=== PATIENT | female | born 1955 | race Caucasian/White ===

== ENCOUNTER 2021-04-21 08:46 | Outpatient (REF) | payer OTHER, SELFPAY ==
[2021-04-21 09:30] LABS: MANUAL DIFF FLAG NO
[2021-04-21 09:40] LABS: Basophils Percent Auto 0.5 % (0-2); Eosinophils Absolute Auto 0.2 X10*3/uL (0.0-0.4); Eosinophils Percent Auto 5.3 % (0-4); Hematocrit 37.7 % (37-47); Imm Gran Abs Auto 0.02 X10*3/uL (0.00-0.03); Imm Gran Pct Auto 0.5 % (0.0-0.4); Lymphocytes Absolute Auto 1.3 X10*3/uL (1.2-4.9); Lymphocytes Percent Auto 30.6 % (20-40); Mean Corpuscular HGB Conc 31.8 g/dl (31.0-35.0); Mean Corpuscular Hemoglobin 29.3 pg (27.0-33.0); Mean Platelet Volume 11.4 fL (9.4-12.3); Monocytes Absolute Auto 0.4 X10*3/uL (0.1-1.2); Monocytes Percent Auto 8.9 % (2-11); Neutrophils Absolute Auto 2.3 X10*3/uL (2.0-8.3); Neutrophils Percent Auto 54.2 % (45-73); Red Cell Distribution Width 13.2 % (11.0-16.0); White Blood Count 4.2 X10*3/uL (4.8-10.8)
[2021-04-21 09:42] LABS: Platelet Count 90 X10*3/uL (160-400)
[2021-04-21 10:10] LABS: Alanine Aminotransferase 55 U/L (0-31); Albumin Level 4.1 g/dL (3.5-5.0); Alkaline Phosphatase 95 U/L (39-117); Anion Gap 11 (12-20); Aspartate Amino Transferase 47 U/L (5-31); Bilirubin Total 0.5 mg/dL (0.0-1.0); Blood Urea Nitrogen 44 mg/dL (9-16); Calcium 8.9 mg/dL (8.4-10.2); Carbon Dioxide 23 mmol/L (22-29); Chloride 113 mmol/L (96-108); Cholesterol 178 mg/dL; Estimated Glomerular Filt Rate 41; Glucose Fasting 199 mg/dL (60-99); HDL Cholesterol 41 mg/dL; LDL Cholesterol Calculated 96 mg/dl; Potassium 5.1 mmol/L (3.3-5.1); Sodium 142 mmol/L (135-145); Total Protein 6.7 g/dL (6.5-8.0); Triglycerides 208 mg/dL
[2021-04-21 10:34] LABS: Thyroid Stimulating Hormone 1.69 uIU/mL (0.32-4.0)
[2021-04-21 11:19] LABS: Creatinine Urine 67.56 mg/dL; Microalbum/Creatinine Ratio Ur 17.7 ug/mg cr
== END 2021-04-21 08:47 | disposition home or self-care (01) ==
LOC: HO.LAB 08:46
PROVIDERS: PCP Internal Medicine; Visit Provider Internal Medicine
DX: Z00.00 Encounter for general adult medical examination without abnormal findings (principal); E11.9 Type 2 diabetes mellitus without complications; E03.9 Hypothyroidism, unspecified
CPT/HCPCS: 36415; 80053; 80061; 82043; 84443; 85025

== ENCOUNTER 2022-01-19 13:43 | Outpatient (REF) | payer OTHER, SELFPAY ==
--- NOTE | ~2022-01-19 | XR_ITS ---
EXAMINATION: XR SINUSES CLINICAL INFORMATION: Chronic sinusitis. COMPARISON: None TECHNIQUE: 5 views of the paranasal sinuses. FINDINGS: No significant mucosal thickening or air-fluid levels are detected within the paranasal sinuses. No bony destruction is evident. Mastoid air cells appear aerated. There appears to be some mild mucosal thickening within the left maxillary sinus. XR/XR sinus min 3V IMPRESSION: No evidence of acute sinusitis.
== END 2022-01-19 13:44 | disposition home or self-care (01) ==
LOC: HO.XRAY 13:43
PROVIDERS: PCP Internal Medicine; Visit Provider Internal Medicine
DX: J32.9 Chronic sinusitis, unspecified (principal)
CPT/HCPCS: 70220

== ENCOUNTER 2022-04-27 08:06 | Outpatient (REF) | payer OTHER, SELFPAY ==
[2022-04-27 08:22] LABS: MANUAL DIFF FLAG NO
[2022-04-27 08:29] LABS: Basophils Percent Auto 0.5 % (0-2); Eosinophils Absolute Auto 0.3 X10*3/uL (0.0-0.4); Eosinophils Percent Auto 7.3 % (0-4); Hematocrit 36.4 % (37.0-47.0); Hemoglobin 11.9 g/dl (12.0-16.0); Imm Gran Abs Auto 0.03 X10*3/uL (0.00-0.03); Imm Gran Pct Auto 0.7 % (0.0-0.4); Lymphocytes Absolute Auto 1.3 X10*3/uL (1.2-4.9); Mean Corpuscular HGB Conc 32.7 g/dl (31.0-35.0); Mean Corpuscular Hemoglobin 29.2 pg (27.0-33.0); Mean Corpuscular Volume 89.4 fL (80.0-98.0); Mean Platelet Volume 10.8 fL (9.4-12.3); Monocytes Absolute Auto 0.4 X10*3/uL (0.1-1.2); Monocytes Percent Auto 9.2 % (2-11); Neutrophils Absolute Auto 2.1 x10*3/uL (2.0-8.3); Neutrophils Percent Auto 50.3 % (45-73); Red Blood Count 4.07 X10*6/uL (4.20-5.50); Red Cell Distribution Width 13.2 % (11.0-16.0); White Blood Count 4.1 X10*3/uL (4.8-10.8)
[2022-04-27 08:30] LABS: Platelet Count 80 X10*3/uL (160-400)
[2022-04-27 08:39] LABS: Estimated Average Glucose 157 mg/dL; Hemoglobin A1c % 7.1 %
[2022-04-27 08:50] LABS: Alanine Aminotransferase 35 U/L (0-31); Alkaline Phosphatase 90 U/L (39-117); Anion Gap 12 (12-20); Aspartate Amino Transferase 34 U/L (5-31); Bilirubin Total 0.5 mg/dL (0.0-1.0); Blood Urea Nitrogen 36 mg/dL (9-16); Calcium 8.9 mg/dL (8.4-10.2); Carbon Dioxide 20 mmol/L (22-29); Chloride 114 mmol/L (96-108); Cholesterol 157 mg/dL; Estimated Glomerular Filt Rate 42; Glucose Fasting 201 mg/dL (60-99); HDL Cholesterol 35 mg/dL; LDL Cholesterol Calculated 78 mg/dl; Potassium 5.2 mmol/L (3.3-5.1); Sodium 141 mmol/L (135-145); Total Protein 6.4 g/dL (6.5-8.0); Triglycerides 222 mg/dL
[2022-04-27 09:12] LABS: Thyroid Stimulating Hormone 1.29 uIU/mL (0.32-4.0)
[2022-04-27 09:27] LABS: Creatinine Urine 68.97 mg/dL; Microalbum/Creatinine Ratio Ur 18.8 ug/mg cr
== END 2022-04-27 08:07 | disposition home or self-care (01) ==
LOC: HO.LAB 08:06
PROVIDERS: PCP Internal Medicine; Visit Provider Internal Medicine
DX: Z13.0 Encounter for screening for diseases of the blood and blood-forming organs and certain disorders involving the immune mechanism (principal); E66.01 Morbid (severe) obesity due to excess calories; E11.69 Type 2 diabetes mellitus with other specified complication; E03.9 Hypothyroidism, unspecified; I10 Essential (primary) hypertension; E78.5 Hyperlipidemia, unspecified
CPT/HCPCS: 36415; 80053; 80061; 82043; 83036; 84443; 85025

== ENCOUNTER 2023-09-16 11:18 | Outpatient (AMB) | payer MEDICARE, SELFPAY ==
[2023-09-16 11:19] VITALS: BP 124/64; PULSE 75; O2SAT 98; BMI 27.1
--- NOTE | 2023-09-16 11:19 | A.OFFPC_ITS ---
Vital Signs 09/16/23 11:19 Height 5 ft 8 in Weight 178 lb BMI 27.1 BP 124/64 Blood Pressure Location Lt brachial Position Sitting Pulse 75 Pulse Source Pulse Oximeter Pulse Oximetry (%) 98 Oxygen Delivery Method Room Air Intake Visit Reasons: 6 m follow up Manager Field Investigations Required: No Human Resources Department Supervisor: Not Required per policy Accompanied by: Self / Same As Patient Allergies ciprofloxacin Allergy (Unknown, Verified 09/16/23 11:20) Angioedema Medication List - Last Reconciled 09/16/23 by Moris Marie MD empagliflozin 10 mg PO DAILY glipizide 10 mg PO BID lisinopril 20 mg PO DAILY metformin 1,000 mg PO BID simvastatin 40 mg PO BEDTIME sitagliptin phosphate 100 mg PO DAILY Tobacco use date assessed: 01/20/23 Fall risk assessment: No Falls in past year Last assessed Fall Risk: 09/16/23 Dental Screening Dental Screen Date: 09/16/23 Did you have a dental visit in the last 12 months?: Yes Did you have a dental problem in the last 6 months where you did not have access to dental care?: No Was dental information given to patient?: Patient has dentist HPI 6 m follow up HPI Details DM HTN and hyperlip; stable on rx PFSH Medical History Diabetes mellitus with coincident hypertension Diabetes mellitus Surgical History No pertinent past surgical history Family History Mother No problems noted. Father No problems noted. Social History Housing: House Alcohol intake: never Patient Tobacco Use Status: Never used Tobacco e-Cigarette/Vaping Use: Never Used Second Hand Smoke Exposure: No service: No Current occupational status: employed Cognitive needs: No Hearing needs: No Vision needs: Yes Questionnaire Thrive Questionnaire Date Thrive assessed: 01/20/23 PACO-7 AMB Questionnaire PACO-7 Date PACO - 7 assessed: 01/20/23 Source: Developed by Drs. Phu Buckley, Vanessa Garcia, Andres Barnhart and colleagues, with an educational britney from [employer]. Review of Systems Const Denies chills, Denies headache(s) and Denies weight loss ENT Denies headache(s) Card Denies chest pain, Denies syncope, Denies irregular heart rhythm and Denies dyspnea Resp Denies chest congestion, Denies cough and Denies dyspnea GI Denies abdominal pain, Denies change in stool character, Denies nausea and Denies vomiting Musc Denies deformity and Denies joint swelling Neuro Denies syncope and Denies headache(s) Physical exam (Primary Care) Vital Signs: Last Vital Signs Pulse 75 09/16/23 11:19 BP 124/64 09/16/23 11:19 Pulse Ox 98 09/16/23 11:19 Oxygen Delivery Method Room Air 09/16/23 11:19 BMI result Body Mass Index 27.1 Tobacco/Smoking Status: Tobacco use Status Tobacco use date assessed 01/20/23 09/16/23 11:20 Patient Tobacco Use Status Never used Tobacco 09/16/23 11:20 e-Cigarette/Vaping Use Never Used 09/16/23 11:20 Thrive Assessment: Date of Thrive Assessment Date Thrive assessed 01/20/23 09/16/23 11:20 Const General: cooperative, comfortable, no acute distress and alert Neck Neck: Yes no lymphadenopathy Thyroid: Thyroid normal Resp Effort & Inspection: normal respiratory effort Auscultation: clear to auscultation bilaterally Percussion: percussion normal Cardio Jugular venous distension: no JVD Palpation: normal PMI Rate: regular rate Rhythm: regular rhythm Heart sounds: S1 normal heart sound present and S2 normal heart sound present GI Inspection: Yes normal to inspection Palpation (GI): No hepatosplenomegaly present Skin General skin exam: no rashes or lesions noted Extrem General: Yes no clubbing, cyanosis or edema Results AMB Hemoglobin A1c AMB Hemoglobin A1c 7.0 % Last Edit by MAYKEL Garcia on 09/16/23 11:35 Results Reviewed Results Reviewed: Laboratory Last Values Hgb A1c (Clinic) 7.0 % (4.0-6.0) H 09/16/23 11:21 Assessment and Plan Assessment & Plan (1) Diabetes mellitus with coincident hypertension: Code(s): E11.9 - Type 2 diabetes mellitus without complications; I10 - Essential (primary) hypertension Plan: stable; same rx (2) Hyperlipidemia: Code(s): E78.5 - Hyperlipidemia, unspecified Plan: stable; same rx (3) Hypertension: Code(s): I10 - Essential (primary) hypertension Plan: stable; same rx Orders: Orders Lipid Panel Today E78.5 - Hyperlipidemia, unspecified Thyroid Stimulating Hormone Today E03.9 - Hypothyroidism, unspecified Complete Blood Count Auto Diff Today D64.9 - Anemia, unspecified Comprehensive [place]. Panel Fast Today N28.9 - Disorder of kidney and ureter, unspecified Microalbumin, Random (w Creat) Today E11.69 - Type 2 diabetes mellitus with other specified complication, E66.01 - Morbid (severe) obesity due to excess calories AMB Hemoglobin A1c Today E11.9 - Type 2 diabetes mellitus without complications, I10 - Essential (primary) hypertension Medications: Refilled glipizide 10 mg PO BID 180 tabs 5RF empagliflozin 10 mg PO DAILY 90 tabs 8RF Coding Level of Care Code Est Pt Level 4 (02138) Diagnoses Diabetes mellitus with coincident hypertension E11.9; I10 Hyperlipidemia E78.5 Hypertension I10
== END 2023-09-16 11:50 | disposition home or self-care (01) ==
PROVIDERS: PCP Internal Medicine; Visit Provider Internal Medicine
DX: E11.9 Type 2 diabetes mellitus without complications (principal); I10 Essential (primary) hypertension; E78.5 Hyperlipidemia, unspecified
CPT/HCPCS: 83036; 99214

== ENCOUNTER 2023-11-12 07:29 | Outpatient (REF) | payer MEDICARE, SELFPAY ==
[2023-11-12 08:15] LABS: MANUAL DIFF FLAG NO
[2023-11-12 09:19] LABS: Eosinophils Absolute Auto 0.2 X10*3/uL (0.0-0.4); Eosinophils Percent Auto 4.7 % (0-4); Hematocrit 37.1 % (37.0-47.0); Hemoglobin 12.3 g/dl (12.0-16.0); Imm Gran Abs Auto 0.03 X10*3/uL (0.00-0.03); Imm Gran Pct Auto 0.8 % (0.0-0.4); Lymphocytes Absolute Auto 1.2 X10*3/uL (1.2-4.9); Lymphocytes Percent Auto 30.5 % (20-40); Mean Corpuscular HGB Conc 33.2 g/dl (31.0-35.0); Mean Corpuscular Hemoglobin 29.4 pg (27.0-33.0); Mean Corpuscular Volume 88.8 fL (80.0-98.0); Mean Platelet Volume 11.6 fL (9.4-12.3); Monocytes Absolute Auto 0.3 X10*3/uL (0.1-1.2); Monocytes Percent Auto 6.8 % (2-11); Neutrophils Absolute Auto 2.2 x10*3/uL (2.0-8.3); Neutrophils Percent Auto 56.2 % (45-73); Red Blood Count 4.18 X10*6/uL (4.20-5.50); White Blood Count 3.8 X10*3/uL (4.8-10.8)
[2023-11-12 09:27] LABS: Platelet Count 86 X10*3/uL (160-400)
[2023-11-12 10:26] LABS: Creatinine Urine 95.28 mg/dL; Microalbum/Creatinine Ratio Ur 15.7 ug/mg cr (<30)
[2023-11-12 10:48] LABS: Alanine Aminotransferase 24 U/L (0-31); Albumin Level 3.8 g/dL (3.5-5.0); Alkaline Phosphatase 95 U/L (39-117); Anion Gap 11 (12-20); Aspartate Amino Transferase 24 U/L (5-31); Bilirubin Total 0.4 mg/dL (0.0-1.0); Blood Urea Nitrogen 33 mg/dL (9-16); Calcium 9.3 mg/dL (8.4-10.2); Carbon Dioxide 21 mmol/L (22-29); Chloride 113 mmol/L (96-108); Cholesterol 158 mg/dL (<200); Estimated Glomerular Filt Rate 40; Glucose Fasting 171 mg/dL (60-99); HDL Cholesterol 40 mg/dL (>40); LDL Cholesterol Calculated 82 mg/dL (<100); Potassium 4.4 mmol/L (3.3-5.1); Sodium 141 mmol/L (135-145); Total Protein 6.5 g/dL (6.5-8.0); Triglycerides 181 mg/dL (<150)
[2023-11-12 10:54] LABS: Thyroid Stimulating Hormone 1.56 uIU/mL (0.32-4.0)
== END 2023-11-12 07:30 | disposition home or self-care (01) ==
LOC: HO.LAB 07:29
PROVIDERS: PCP Internal Medicine; Visit Provider Internal Medicine
DX: E03.9 Hypothyroidism, unspecified (principal); E11.69 Type 2 diabetes mellitus with other specified complication; E66.01 Morbid (severe) obesity due to excess calories; N28.9 Disorder of kidney and ureter, unspecified; D64.9 Anemia, unspecified; E78.5 Hyperlipidemia, unspecified
CPT/HCPCS: 36415; 80053; 80061; 82043; 82570; 84443; 85025

== ENCOUNTER 2024-03-19 08:12 | Outpatient (AMB) | payer MEDICARE, SELFPAY ==
[2024-03-19 08:36] VITALS: BP 130/60; PULSE 75; O2SAT 98; BMI 27.7
--- NOTE | 2024-03-19 08:36 | MHC.PC.OV ---
Vital Signs 03/19/24 08:36 Height 5 ft 8 in Weight 182 lb BMI 27.7 BP 130/60 Blood Pressure Location Lt brachial Position Sitting Pulse 75 Pulse Source Pulse Oximeter Pulse Oximetry (%) 98 Oxygen Delivery Method Room Air Intake Visit Reasons: 6mth f/u Forensic Audit Expert: Not Required per policy Accompanied by: Self / Same As Patient Allergies ciprofloxacin Allergy (Unknown, Verified 03/19/24 08:37) Angioedema Medication List - Last Reconciled 03/19/24 by Moris Marie MD empagliflozin (Jardiance) 25 mg PO DAILY glipizide 10 mg PO BID lisinopril 20 mg PO DAILY metformin 1,000 mg PO BID simvastatin 40 mg PO BEDTIME sitagliptin phosphate 100 mg PO DAILY Tobacco use date assessed: 03/19/24 Fall risk assessment: No Falls in past year Last assessed Fall Risk: 03/19/24 Dental Screening Dental Screen Date: 03/19/24 Did you have a dental visit in the last 12 months?: Yes Did you have a dental problem in the last 6 months where you did not have access to dental care?: No Was dental information given to patient?: Patient has dentist HPI 6mth f/u HPI Details HTN on Rx; doing well and compliant [facility] Medical History Diabetes mellitus with coincident hypertension Diabetes mellitus Surgical History No pertinent past surgical history Family History Mother No problems noted. Father No problems noted. Social History Housing: House Alcohol intake: never Patient Tobacco Use Status: Never used Tobacco e-Cigarette/Vaping Use: Never Used Second Hand Smoke Exposure: No service: No Current occupational status: employed Cognitive needs: No Hearing needs: No Vision needs: Yes Questionnaire PHQ-9 Over the last 2 weeks, how often have you been bothered by any of the following problems? 1. Little interest or pleasure in doing things: not at all 2. Feeling down, depressed, or hopeless: not at all 3. Trouble falling or staying asleep, or sleeping too much: not at all 4. Feeling tired or having little energy: not at all 5. Poor appetite or overeating: not at all 6. Feeling bad about yourself - or that you are a failure or have let yourself or your family down: not at all 7. Trouble concentrating on things, such as reading the newspaper or watching television: not at all 8. Moving or speaking so slowly that other people could have noticed. Or the opposite - being so fidgety or restless that you have been moving around a lot more than usual: not at all 9. Thoughts that you would be better off or of hurting yourself in some way: not at all Total score: 0 Depression Screening Interpretation: Negative Depression Screening Done: Yes 55508 - PHQ-9 Billing: Yes Source: Developed by Drs. Phu Buckley, Vanessa Garcia, Andres Barnhart and colleagues, with an educational britney from [employer]. Thrive Questionnaire Date Thrive assessed: 03/19/24 I am a: Patient What is your living situation today?: I have a steady place to live Within the past 12 months, did the food you bought not last and you didn't have the money to get more?: Never true Within the past 12 months, did you worry whether your food would run out before you got money to buy more?: Never true Do you have trouble paying for medicines?: No Do you have trouble getting transportation to medical appointments?: No Do you have trouble paying your heating and electricity bill?: No Do you have trouble taking care of your child, family member or friend?: No Do you have trouble with day-to-day activities such as bathing, preparing meals, shopping, managing finances, etc.?: No Are you currently unemployed and looking for a job?: No Are you interested in more education?: No Please select the resources that you would like help with: None THRIVE Score: 0 AUDIT C Alcohol Use Questionnaire (AUDIT-C) 1. How often do you have a drink containing alcohol?: Never Total Score: 0 Score Reviewed/Action Taken: Yes PACO-7 AMB Questionnaire PACO-7 Date PACO - 7 assessed: 03/19/24 Feeling nervous, anxious, or on edge: 0 = Not at all Not being able to stop or control worryin = Not at all Worrying too much about different things: 0 = Not at all Trouble relaxin = Not at all Being so restless that it is hard to sit still: 0 = Not at all Becoming easily annoyed or irritable: 0 = Not at all Feeling afraid as if something awful might happen: 0 = Not at all Total PACO-7 score (0-4 normal; 5-9 mild; 10-14 moderate; 15-21 severe): 0 Source: Developed by Drs. Phu Buckley, Vanessa Garcia, Andres Barnhart and colleagues, with an educational britney from [employer]. Review of Systems Const Denies chills, Denies headache(s) and Denies weight loss ENT Denies headache(s) Card Denies chest pain, Denies syncope, Denies irregular heart rhythm and Denies dyspnea Resp Denies chest congestion, Denies cough and Denies dyspnea GI Denies abdominal pain, Denies change in stool character, Denies nausea and Denies vomiting Musc Denies deformity and Denies joint swelling Neuro Denies syncope and Denies headache(s) Physical exam (Primary Care) Vital Signs: Last Vital Signs Pulse 75 03/19/24 08:36 BP 130/60 03/19/24 08:36 Pulse Ox 98 03/19/24 08:36 Oxygen Delivery Method Room Air 03/19/24 08:36 BMI result Body Mass Index 27.7 Tobacco/Smoking Status: Tobacco use Status Tobacco use date assessed 03/19/24 03/19/24 08:41 Patient Tobacco Use Status Never used Tobacco 03/19/24 08:41 e-Cigarette/Vaping Use Never Used 03/19/24 08:41 PHQ-9: PHQ-9 Score PHQ-9: Total score 0 03/19/24 08:41 Depression Screening Interpretation: Negative Thrive Assessment: Date of Thrive Assessment Date Thrive assessed 03/19/24 03/19/24 08:41 Const General: cooperative, comfortable, no acute distress and alert Neck Neck: Yes no lymphadenopathy Thyroid: Thyroid normal Resp Effort & Inspection: normal respiratory effort Auscultation: clear to auscultation bilaterally Percussion: percussion normal Cardio Jugular venous distension: no JVD Palpation: normal PMI Rate: regular rate Rhythm: regular rhythm Heart sounds: S1 normal heart sound present and S2 normal heart sound present GI Inspection: Yes normal to inspection Palpation (GI): No hepatosplenomegaly present Skin General skin exam: no rashes or lesions noted Extrem General: Yes no clubbing, cyanosis or edema Assessment and Plan Assessment & Plan (1) Hypertension: Code(s): I10 - Essential (primary) hypertension Plan: stable ;and same rx Orders: Orders Complete Blood Count Auto Diff Today Z13.0 - Encounter for screening for diseases of the blood and blood-forming organs and certain disorders involving the immune mechanism Lipid Panel Today Z13.220 - Encounter for screening for lipoid disorders Comprehensive [place]. Panel Fast Today Z13.9 - Encounter for screening, unspecified Hemoglobin A1c Today R73.9 - Hyperglycemia, unspecified Coding Level of Care Code Est Pt Level 3 (32179) Diagnoses Hypertension I10
== END 2024-03-19 08:53 | disposition home or self-care (01) ==
PROVIDERS: PCP Internal Medicine; Visit Provider Internal Medicine
DX: I10 Essential (primary) hypertension (principal)
CPT/HCPCS: 99213

== ENCOUNTER 2024-09-24 08:19 | Outpatient (AMB) | payer MEDICARE, SELFPAY ==
--- OUTSIDE RECORDS SUMMARY | 2024-09-24 08:26 | XMS_ITS | Data Portability ---
Author Organization [facility] [address] Address [address] [place] [address] Assessment No assessment recorded. Plan of Treatment Reminders Order Date Submit Date Provider Last Modified By Organization Details Last Modified Time Details Appointments None record ed. Lab None record ed. Referral None record ed. Procedures None record ed. Surgeries None record ed. Imaging None record ed. Medication Orders None record ed. Patient TargetsNo targets recorded. Patient InstructionsNo instructions recorded. Reason for Referral None Reported. Problems Name Problem SNOMED Code Status Onset Date Resolution Date Notes Provider Name and Address Organization Details Recorded Time Hypertensive disorder 89705916 Active OSCAR ALTAMIRANO RA null, [place] - [facility] 2 10:06:43 Diabetes mellitus 31024994 Active OSCARUSHA ALTAMIRANO RA null, PA - [facility] 2 10:06:53 Hypercholestero lemia 21091883 Active OSCARUSHA ALTAMIRANO RA null, PA - [facility] 2 10:07:02 Problem Notes None recorded. Medical Equipment None Reported. Allergies Allergen ID Allergen Name Allergen Category Reaction Reaction Severity Criticality Documentation Date Start Date Code Code System Note Provider Name and Address Organization Details Recorded Time 67091 ciproflox acin medicatio n anaphylax is Not available Not available 09/19/2022 2551 RxNorm OSCARUSHA ALTAMIRANO RA null, PA - [facility] 2 10:05:14 Medications Name Sig Start Date Stop Date Status Note LastModified by Organization Details LastModified Time glyburide 5 mg tablet active Not Available Not Available Not Available lisinopril 20 mg tablet active Not Available Not Available No t Available simvastatin 40 mg tablet active Not Available Not Available No t Available OneTouch Ultra Test strips active Not Available Not Available Not Available metformin 1,000 mg tablet active Not Available Not Available Not Available OneTouch UltraSoft Lancets active Not Available Not Available Not Available Januvia active Not Available Not Avail able Not Available Jardiance active Not Available Not Alexa ilable Not Available OneTouch Ultra2 Meter active Not Available Not Available Not Available Vitals Date Recorded Body height Body mass index (BMI) Body weight Oxygen saturation Oxygen saturation in Arterial blood by Pulse oximetry Heart rate Respiratory rate Body temperature Systolic blood pressure Diastolic blood pressure Provider Name and Address Organization Details Last Updated DateTime 2 172.72 cm 27.4 kg/m2 09209.6 3 g 98 % 98 % 70 /min 17 /min 97.7 [degF] 140 mm[Hg] 70 mm[Hg] OSCAR ALTAMIRANO RA PA - [facility] 2 10:03:30 Social History Question Answer Notes LastModified by [employer] Details LastModified Time Tobacco Smoking Status Never Smoker OSCAR cobos PA - [facility] 09/19/2022 10:07:31 What Is Your Level Of Alcohol Consumption? None Information not available 09/19/2022 Have You Had Direct Contact, Or Contact During Intimacy, With Monkeypox Rash, Scabs, Or Body Fluids From A Person With Monkeypox? No Information not available 09/19/2022 Do You Use Any Illicit Or Recreational Drugs? No Information not available 09/19/2022 Have You Recently Traveled Abroad? No Information not available 09/19/2022 Do You Or Have You Ever Used Any Other Forms Of Tobacco Or Nicotine? No Information not available 09/19/2022 Sex: Unknown Functional Status None recorded. Mental Status None recorded. Family History Relationship Description Onset Age of this Age Resolved Age Notes LastModified by Organization Details LastModified Time Father Diabetes mellitus Not available 10:07:16 Medical History No medical history recorded. Gynecological HistoryNo gynecological history recorded. Obstetrics History GPAL:G 0 P 0 0 0 0 Past Encounters Encounter ID Performer Location Encounter Start Date Encounter Closed Date Diagnosis/Indication Diagnosis SNOMED-CT Code Diagnosis ICD10 Code [id number] [address] [place] [address] 08/29/2018 14:09:51 08/29/2018 17:12:45 [id number] [address] [place] [address] 01/03/2022 12:45:19 01/03/2022 13:46:28 [id number] [id number] [place] [address] 01/09/2022 09:23:10 01/09/2022 11:51:29 [id number] [address] [place] [address] 10/06/2017 10:27:06 10/06/2017 10:48:41 [id number] [address] [place] [address] 10/18/2019 16:27:02 10/18/2019 19:18:15 [id number] Tulio Garcia DO [address] [place] [address] 09/19/2022 08:27:53 09/19/2022 10:26:13 COVID-19 [id number] U07.1 Health Concerns Section Related Observation LastModified by Organization Detai ls LastModified Time None Recorded Concern Status LastModified by Organization Details LastModified Time None Recorded Advance Directives Directive None Recorded Payers Encounter Date Sequence Insurance Name Policy Number Policy Curiel Covered Member ID Curiel Member ID Guarantor Name 10/18/2019 1 [facility] (O) [id number] Marly A Mccausland [id number] [facility] Whit 01/03/2022 1 [facility] ([facility] [id number] Marly A Whit [id number] Marly Mccausland 01/09/2022 1 [facility] ([facility] [id number] Marly A Whit [id number] [facility] Mccausland 09/19/2022 2 [place] [employer] Marly A Whit [id number] [facility] Mccausland 09/19/2022 1 [place]MED[place]ARE [place]ACEMENT PPO) Marly Sherman [id number] Marly Sherman Notes Date Note Type Note Provider Name and Address Organization Details Recorded Time 09/19/2022 text/html CongestionReport ed bypatient.Notes:pt has nasal congestion x 1 1/2 weeks. tested POSITIVE for covid 09/13/2022. No feverNo chillsNo coughNo difficulty breathing or respiratory distressNo CPNo ear painNo sore throatNo Abdominal painNo nauseaNo vomitingNp diarrheaNo myalgiaNo fatigueNo rashNo HANo dizzinessNo recent travelNo known sick contacts Tulio Garcia, DO [address] [place], [address], [place] - [facility] 09/19/2022 10:23:22 OBGyn Episode No OBEpisode recorded.
[2024-09-24 08:36] VITALS: BP 130/60; PULSE 84; O2SAT 97; BMI 27.4
--- NOTE | 2024-09-24 08:36 | MHC.PC.OV ---
Vital Signs 09/24/24 08:36 Height 5 ft 8 in Weight 180 lb 4 oz BMI 27.4 BP 130/60 Blood Pressure Location Lt brachial Position Sitting Pulse 84 Pulse Source Pulse Oximeter Pulse Oximetry (%) 97 Oxygen Delivery Method Room Air Intake Visit Reasons: 6mof\u Allergies ciprofloxacin Allergy (Unknown, Verified 09/24/24 08:39) Angioedema Medication List - Last Reconciled 09/24/24 by Moris Marie MD empagliflozin (Jardiance) 25 mg PO DAILY glipizide 10 mg PO BID lisinopril 20 mg PO DAILY metformin 1,000 mg PO BID simvastatin 40 mg PO BEDTIME sitagliptin phosphate 100 mg PO DAILY Tobacco use date assessed: 09/24/24 Dental Screening Dental Screen Date: 09/24/24 Did you have a dental visit in the last 12 months?: Yes Did you have a dental problem in the last 6 months where you did not have access to dental care?: No Was dental information given to patient?: Patient has dentist HPI 6mof\u HPI Details DM in good control; compliant [facility] Medical History Diabetes mellitus with coincident hypertension Diabetes mellitus Surgical History No pertinent past surgical history Family History Mother No problems noted. Father No problems noted. Social History Housing: House Alcohol intake: never Patient Tobacco Use Status: Never used Tobacco e-Cigarette/Vaping Use: Never Used Second Hand Smoke Exposure: No service: No Current occupational status: employed Cognitive needs: No Hearing needs: No Vision needs: Yes Questionnaire PHQ-9 Over the last 2 weeks, how often have you been bothered by any of the following problems? 1. Little interest or pleasure in doing things: not at all 2. Feeling down, depressed, or hopeless: not at all 3. Trouble falling or staying asleep, or sleeping too much: not at all 4. Feeling tired or having little energy: not at all 5. Poor appetite or overeating: not at all 6. Feeling bad about yourself - or that you are a failure or have let yourself or your family down: not at all 7. Trouble concentrating on things, such as reading the newspaper or watching television: not at all 8. Moving or speaking so slowly that other people could have noticed. Or the opposite - being so fidgety or restless that you have been moving around a lot more than usual: not at all 9. Thoughts that you would be better off or of hurting yourself in some way: not at all Total score: 0 Depression Screening Interpretation: Negative Depression Screening Done: Yes 85888 - PHQ-9 Billing: Yes Source: Developed by Drs. Phu Buckley, Vanessa Garcia, Andres Barnhart and colleagues, with an educational britney from [employer]. Thrive Questionnaire Date Thrive assessed: 09/24/24 I am a: Patient What is your living situation today?: I have a steady place to live Within the past 12 months, did the food you bought not last and you didn't have the money to get more?: Never true Within the past 12 months, did you worry whether your food would run out before you got money to buy more?: Never true Do you have trouble paying for medicines?: No Do you have trouble getting transportation to medical appointments?: No Do you have trouble paying your heating and electricity bill?: No Do you have trouble taking care of your child, family member or friend?: No Do you have trouble with day-to-day activities such as bathing, preparing meals, shopping, managing finances, etc.?: No Are you currently unemployed and looking for a job?: No Are you interested in more education?: No Please select the resources that you would like help with: None THRIVE Score: 0 AUDIT C Alcohol Use Questionnaire (AUDIT-C) 1. How often do you have a drink containing alcohol?: Never 3. How often do you have six or more drinks on one occasion?: Never Total Score: 0 Score Reviewed/Action Taken: Yes PACO-7 AMB Questionnaire PACO-7 Date PACO - 7 assessed: 09/24/24 Feeling nervous, anxious, or on edge: 0 = Not at all Not being able to stop or control worryin = Not at all Worrying too much about different things: 0 = Not at all Trouble relaxin = Not at all Being so restless that it is hard to sit still: 0 = Not at all Becoming easily annoyed or irritable: 0 = Not at all Feeling afraid as if something awful might happen: 0 = Not at all Total PACO-7 score (0-4 normal; 5-9 mild; 10-14 moderate; 15-21 severe): 0 Source: Developed by Drs. Phu Buckley, Vanessa Garcia, Andres Barnhart and colleagues, with an educational britney from [employer]. Review of Systems Const Denies chills, Denies headache(s) and Denies weight loss ENT Denies headache(s) Card Denies chest pain, Denies syncope, Denies irregular heart rhythm and Denies dyspnea Resp Denies chest congestion, Denies cough and Denies dyspnea GI Denies abdominal pain, Denies change in stool character, Denies nausea and Denies vomiting Musc Denies deformity and Denies joint swelling Neuro Denies syncope and Denies headache(s) Physical exam (Primary Care) Vital Signs: Last Vital Signs Pulse 84 09/24/24 08:36 BP 130/60 09/24/24 08:36 Pulse Ox 97 09/24/24 08:36 Oxygen Delivery Method Room Air 09/24/24 08:36 BMI result Body Mass Index 27.4 Tobacco/Smoking Status: Tobacco use Status Tobacco use date assessed 09/24/24 09/24/24 08:41 Patient Tobacco Use Status Never used Tobacco 09/24/24 08:41 e-Cigarette/Vaping Use Never Used 09/24/24 08:41 PHQ-9: PHQ-9 Score PHQ-9: Total score 0 09/24/24 08:41 Depression Screening Interpretation: Negative Thrive Assessment: Date of Thrive Assessment Date Thrive assessed 09/24/24 09/24/24 08:41 Const General: cooperative, comfortable, no acute distress and alert Neck Neck: Yes no lymphadenopathy Thyroid: Thyroid normal Resp Effort & Inspection: normal respiratory effort Auscultation: clear to auscultation bilaterally Percussion: percussion normal Cardio Jugular venous distension: no JVD Palpation: normal PMI Rate: regular rate Rhythm: regular rhythm Heart sounds: S1 normal heart sound present and S2 normal heart sound present GI Inspection: Yes normal to inspection Palpation (GI): No hepatosplenomegaly present Skin General skin exam: no rashes or lesions noted Extrem General: Yes no clubbing, cyanosis or edema Results AMB Hemoglobin A1c AMB Hemoglobin A1c 7.2 % Last Edit by Kelly Garcia CMA on 09/24/24 08:47 Results Reviewed Results Reviewed: Laboratory Last Values Hgb A1c (Clinic) 7.2 % (4.0-6.0) H 09/24/24 08:46 Coding Level of Care Code Est Pt Level 3 (85889) Diagnoses Diabetes mellitus with coincident hypertension E11.9; I10 Additional Codes PHQ-9 - 31138 - PHQ-9 Billing: Yes ([id number]) Assessment & Plan Assessment & Plan (1) Diabetes mellitus with coincident hypertension: Code(s): E11.9 - Type 2 diabetes mellitus without complications; I10 - Essential (primary) hypertension Category: Medical Plan: stable; same rx Orders: Orders Lipid Panel Today Z13.220 - Encounter for screening for lipoid disorders AMB Hemoglobin A1c Today Z13.9 - Encounter for screening, unspecified Complete Blood Count Auto Diff Today Z13.0 - Encounter for screening for diseases of the blood and blood-forming organs and certain disorders involving the immune mechanism Comprehensive Irene. Panel Fast Today Z13.9 - Encounter for screening, unspecified Microalbumin, Random (w Creat) Today E11.69 - Type 2 diabetes mellitus with other specified complication, E66.01 - Morbid (severe) obesity due to excess calories Hemoglobin A1c Today R73.9 - Hyperglycemia, unspecified
== END 2024-09-24 08:56 | disposition home or self-care (01) ==
PROVIDERS: PCP Internal Medicine; Visit Provider Internal Medicine
DX: E11.9 Type 2 diabetes mellitus without complications (principal); I10 Essential (primary) hypertension; Z13.9 Encounter for screening, unspecified

== ENCOUNTER → 2024-09-24 08:19 | Outpatient (BNVA) | payer MEDICARE, SELFPAY | PROVIDERS: PCP Internal Medicine; Visit Provider Internal Medicine | DX: I10 Essential (primary) hypertension (principal); E11.69 Type 2 diabetes mellitus with other specified complication; E11.65 Type 2 diabetes mellitus with hyperglycemia | CPT/HCPCS: 83036; 96127; 99212 ==

== ENCOUNTER 2024-11-02 13:15 | Outpatient (AMB) | payer MEDICARE, SELFPAY ==
--- NOTE | 2024-11-02 13:17 | A.OFFPC_ITS ---
Vital Signs 11/02/24 13:18 Height 5 ft 8 in Weight 183 lb 4 oz BMI 27.9 BP 120/58 L Blood Pressure Location Lt brachial Position Sitting Pulse 72 Pulse Source Pulse Oximeter Temp 97.3 F Temp Source Temporal Artery Scan Pulse Oximetry (%) 96 Oxygen Delivery Method Room Air Intake Visit Reasons: 10/16 TIA [employer] Required: No Accompanied by: Self / Same As Patient Allergies ciprofloxacin Allergy (Unknown, Verified 11/02/24 13:21) Angioedema Medication List - Last Reconciled 11/02/24 by Moris Marie MD empagliflozin (Jardiance) 25 mg PO DAILY glipizide 10 mg PO BID lisinopril 20 mg PO DAILY metformin 1,000 mg PO BID simvastatin 40 mg PO BEDTIME sitagliptin phosphate 100 mg PO DAILY Tobacco use date assessed: 11/02/24 Fall risk assessment: No Falls in past year Last assessed Fall Risk: 11/02/24 Dental Screening Dental Screen Date: 11/02/24 Did you have a dental visit in the last 12 months?: Yes Did you have a dental problem in the last 6 months where you did not have access to dental care?: No Was dental information given to patient?: Patient has dentist HPI 10/16 TIA HPI Details had an episode of aphasia diagnosed as a TIA at the ER; begun on Plavix ansd ASA; has seen rene [facility] Medical History Diabetes mellitus with coincident hypertension Diabetes mellitus Surgical History No pertinent past surgical history Family History Mother No problems noted. Father No problems noted. Social History Housing: House Alcohol intake: never Patient Tobacco Use Status: Never used Tobacco e-Cigarette/Vaping Use: Never Used Second Hand Smoke Exposure: No service: No Current occupational status: employed Cognitive needs: No Hearing needs: No Vision needs: Yes Questionnaire PHQ-9 Over the last 2 weeks, how often have you been bothered by any of the following problems? 1. Little interest or pleasure in doing things: not at all 2. Feeling down, depressed, or hopeless: not at all 3. Trouble falling or staying asleep, or sleeping too much: not at all 4. Feeling tired or having little energy: not at all 5. Poor appetite or overeating: not at all 6. Feeling bad about yourself - or that you are a failure or have let yourself or your family down: not at all 7. Trouble concentrating on things, such as reading the newspaper or watching television: not at all 8. Moving or speaking so slowly that other people could have noticed. Or the opposite - being so fidgety or restless that you have been moving around a lot more than usual: not at all 9. Thoughts that you would be better off or of hurting yourself in some way: not at all Total score: 0 Depression Screening Interpretation: Negative Depression Screening Done: Yes 31921 - PHQ-9 Billing: Yes Source: Developed by Drs. Phu Buckley, Vanessa Garcia, Andres Barnhart and colleagues, with an educational britney from [employer]. Thrive Questionnaire Date Thrive assessed: 11/02/24 I am a: Patient What is your living situation today?: I have a steady place to live Within the past 12 months, did the food you bought not last and you didn't have the money to get more?: Never true Within the past 12 months, did you worry whether your food would run out before you got money to buy more?: Never true Do you have trouble paying for medicines?: No Do you have trouble getting transportation to medical appointments?: No Do you have trouble paying your heating and electricity bill?: No Do you have trouble taking care of your child, family member or friend?: No Do you have trouble with day-to-day activities such as bathing, preparing meals, shopping, managing finances, etc.?: No Are you currently unemployed and looking for a job?: No Are you interested in more education?: No Please select the resources that you would like help with: None Currently or been in a relationship where the following occur: No concerns reported THRIVE Score: 0 AUDIT C Alcohol Use Questionnaire (AUDIT-C) 1. How often do you have a drink containing alcohol?: Never 3. How often do you have six or more drinks on one occasion?: Never Total Score: 0 Score Reviewed/Action Taken: Yes PACO-7 AMB Questionnaire PACO-7 Date PACO - 7 assessed: 11/02/24 Feeling nervous, anxious, or on edge: 0 = Not at all Not being able to stop or control worryin = Not at all Worrying too much about different things: 0 = Not at all Trouble relaxin = Not at all Being so restless that it is hard to sit still: 0 = Not at all Becoming easily annoyed or irritable: 0 = Not at all Feeling afraid as if something awful might happen: 0 = Not at all Total PACO-7 score (0-4 normal; 5-9 mild; 10-14 moderate; 15-21 severe): 0 Source: Developed by Drs. Phu Buckley, Vanessa Garcia, Andres Barnhart and colleagues, with an educational britney from [employer]. PACO-7 Assessment Billing PACO-7 Assessment Tool: PACO-7 Assessment 42605 Review of Systems Const Denies chills, Denies headache(s) and Denies weight loss ENT Denies headache(s) Card Denies chest pain, Denies syncope, Denies irregular heart rhythm and Denies dyspnea Resp Denies chest congestion, Denies cough and Denies dyspnea GI Denies abdominal pain, Denies change in stool character, Denies nausea and Denies vomiting Musc Denies deformity and Denies joint swelling Neuro Denies syncope and Denies headache(s) Physical exam (Primary Care) Vital Signs: Last Vital Signs Temp 97.3 F 11/02/24 13:18 Pulse 72 11/02/24 13:18 BP 120/58 L 11/02/24 13:18 Pulse Ox 96 11/02/24 13:18 Oxygen Delivery Method Room Air 11/02/24 13:18 BMI result Body Mass Index 27.9 Tobacco/Smoking Status: Tobacco use Status Tobacco use date assessed 11/02/24 11/02/24 13:22 Patient Tobacco Use Status Never used Tobacco 11/02/24 13:22 e-Cigarette/Vaping Use Never Used 11/02/24 13:22 PHQ-9: PHQ-9 Score PHQ-9: Total score 0 11/02/24 13:22 Depression Screening Interpretation: Negative Thrive Assessment: Date of Thrive Assessment Date Thrive assessed 11/02/24 11/02/24 13:22 Currently or been in a relationship where the following occur: No concerns reported Const General: cooperative, comfortable, no acute distress and alert Neck Neck: Yes no lymphadenopathy Thyroid: Thyroid normal Resp Effort & Inspection: normal respiratory effort Auscultation: clear to auscultation bilaterally Percussion: percussion normal Cardio Jugular venous distension: no JVD Palpation: normal PMI Rate: regular rate Rhythm: regular rhythm Heart sounds: S1 normal heart sound present and S2 normal heart sound present GI Inspection: Yes normal to inspection Palpation (GI): No hepatosplenomegaly present Skin General skin exam: no rashes or lesions noted Extrem General: Yes no clubbing, cyanosis or edema Coding Level of Care Code Est Pt Level 3 (46849) Diagnoses TIA (transient ischemic attack) G45.9 Additional Codes PACO-7 Assessment Billing - PACO-7 Assessment Tool: PACO-7 Assessment 59581 ([id number]) PHQ-9 - 29008 - PHQ-9 Billing: Yes ([id number]) Assessment & Plan Assessment & Plan (1) TIA (transient ischemic attack): Code(s): G45.9 - Transient cerebral ischemic attack, unspecified Category: Medical Plan: carotod US Orders: Orders US carotid duplex BI Today G45.9 - Transient cerebral ischemic attack, unspecified
[2024-11-02 13:18] VITALS: BP 120/58; PULSE 72; TEMP 36.3; O2SAT 96; BMI 27.9
--- OUTSIDE RECORDS SUMMARY | 2024-11-02 13:34 | XMS_ITS | Data Portability ---
Author Organization [facility] [id number] [address] [place] [address] Assessment No assessment recorded. Plan of Treatment [...] Address Organization Details Recorded Time Hypertensive disorder 80230302 Active OSCAR ALTAMIRANO RA null, [place] - [facility] 2 10:06:43 Diabetes mellitus 53083283 Active OSCARUSHA ALTAMIRANO RA null, PA - [facility] 2 10:06:53 Hypercholestero lemia 98067033 Active OSCARUSHA ALTAMIRANO RA null, PA - [facility] 2 10:07:02 Problem Notes None recorded. Medical Equipment None Reported. Allergies Allergen ID Allergen Name Allergen Category Reaction Reaction Severity Criticality Documentation Date Start Date Code Code System Note Provider Name and Address Organization Details Recorded Time 86419 ciproflox acin medicatio n anaphylax is Not [...] Not Available Vitals Date Recorded Body height Provider Name an d Address Organization Details Last Updated DateTime 09/19/2022 172.72 cm OSCAR PEPPERRICKYA PA - [facility] 09/19/2022 10:02:16 Date Recorded Body mass index (BMI) Body weight Provider Name and Address Organization Details Last Updated DateTime 09/19/2022 27.4 kg/m2 36114.63 g OSCARUSHA PEPEPRYinaDORSEY PA - [facility] 09/19/2022 10:03:18 Date Recorded Oxygen saturation Oxygen saturation in Arterial blood by Pulse oximetry Provider Name and Address Organization Details Last Updated DateTime 09/19/2022 98 % 98 % OSCAR PEPPERYinaDORSEY PA - [facility] 09/19/2022 10:03:33 Date Recorded Pain severity - 0-10 verbal numeric rating [Score] - Reported Provider Name and Address Organization Details Last Updated DateTime 09/19/2022 0 OSCARUSHA PEPPER-DORSEY PA - [facility] 09/19/2022 10:03:37 Date Recorded Heart rate Provider Name an d Address Organization Details Last Updated DateTime 09/19/2022 70 /min OSCARUSHA PEPPERRICKYA PA - [facility] 09/19/2022 10:04:21 Date Recorded Respiratory rate Provider Name a nd Address Organization Details Last Updated DateTime 09/19/2022 17 /min OSCAR PEPPER-DORSEY PA - [facility] 09/19/2022 10:04:25 Date Recorded Body temperature Provider Name a nd Address Organization Details Last Updated DateTime 09/19/2022 97.7 [degF] OSCAR PEPPER-DORSEY PA - [facility] 09/19/2022 10:04:41 Date Recorded Systolic blood pressure Diastolic blood pressure Provider Name and Address Organization Details Last Updated DateTime 09/19/2022 140 mm[Hg] 70 mm[Hg] OSCAR BLANCODORSEY PA - [facility] 09/19/2022 10:03:30 Social History Question Answer Notes LastModified by Organizat ion Details LastModified Time Tobacco Smoking Status Never Smoker LITTLE Medina - [facility] 09/19/2022 10:07:31 What Is Your Level [...] Diagnosis/Indication Diagnosis SNOMED-CT Code Diagnosis ICD10 Code Diagnosis Note [id number] [address] [place] [address] 08/29/2018 14:09:51 08/29/2018 17:12:45 [id number] [address] [place] [address] 01/03/2022 12:45:19 01/03/2022 13:46:28 [id number] [address] [place] [address] 01/09/2022 09:23:10 01/09/2022 11:51:29 [id number] [address] [facility] [address] [place] [address] 10/06/2017 10:27:06 10/06/2017 10:48:41 [id number] [address] [facility] [address] [facility] [place] [address] 10/18/2019 16:27:02 10/18/2019 19:18:15 [id number] Tulio Garcia DO [address] [facility] [address] [facility] [place] [address] 09/19/2022 08:27:53 09/19/2022 10:26:13 COVID-19 [id number] U07.1 COVID positiveRe commend isolation x 5 daysPlenty of fluidsTyle nol for pain/fever Humidifier Nasal saline spraymucin ex and/or coricidinP lease call your PCP to discuss Triny aviles concerning red flags with patient and reasons to follow up in the Emergency Department urgently.C all or RTC if worsening cough, SOB, high fever, rash, n/v/d and unable to hydrate You tested positive for COVID-19, stay home for at least 5 days and isolate from others in your home. You are likely most infectious during these first 5 days. Wear a high-quali ty mask if you must be around others at home and in public.Do not go places where you are unable to wear a mask. For travel guidance, see CDC? s Travel webpage.Do not travel.Sta y home and separate from others as much as possible.U se a separate bathroom, if possible.T annika steps to improve ventilatio n at home, if possible.D on? t share personal household items, like cups, towels, and utensils.M onitor your symptoms. If you have an emergency warning sign (like trouble breathing) , seek emergency medical care immediatel y.If you had symptoms and:Your symptoms are improvingY ou may end isolation after day 5 if: You are fever-free for 24 hours (without the use of fever-redu cing medication ).Your symptoms are not improvingC ontinue to isolate until: You are fever-free for 24 hours (without the use of fever-redu cing medication ).Your symptoms are improving. Regardless of when you end isolationU ntil at least day 11:Avoid being around people who are more likely to get very sick from COVID-19.R emember to wear a high-quali ty mask when indoors around others at home and in public.Do not go places where you are unable to wear a mask until you are able to discontinu e masking (see below).For travel guidance, see CDC? s Travel webpage. Health Concerns Section Related Observation LastModified by Organization Detai ls LastModified Time None Recorded Concern Status LastModified by Organization Details LastModified Time None Recorded Advance Directives Directive None Recorded Payers Encounter Date Sequence Insurance Name Policy Number Policy Curiel Covered Member ID Curiel Member ID Guarantor Name 10/18/[address] [facility] (O) [id number] Marly A [place] [id number] Marly [place] 01/03/[address] [facility] [id number] Marly A Whit [id number] Marly Whit 01/09/[address] [facility] (O) [id number] Marly A [place] [id number] Marly Whit 09/19/2022 2 [place] Marly A [place] [id number] Marly [place] 09/19/2022 1 [place] PPO) Marly Whit [id number] [employer]arlyWorklight Notes Date Note Type Note Provider Name [...] Garcia, DO [address] [place], [address], [place] - [facility] 09/19/2022 10:23:22 OBGyn Episode No OBEpisode recorded.
== END 2024-11-02 13:38 | disposition home or self-care (01) ==
PROVIDERS: PCP Internal Medicine; Visit Provider Internal Medicine
DX: G45.9 Transient cerebral ischemic attack, unspecified (principal)

== ENCOUNTER → 2024-11-02 13:15 | Outpatient (BNVA) | payer MEDICARE, SELFPAY | PROVIDERS: PCP Internal Medicine; Visit Provider Internal Medicine | DX: G45.9 Transient cerebral ischemic attack, unspecified (principal) | CPT/HCPCS: 96127; 99212 ==

== ENCOUNTER 2025-01-10 11:29 | Outpatient (AMB) | payer MEDICARE, SELFPAY ==
--- NOTE | 2025-01-10 11:45 | A.OFFPC_ITS ---
Vital Signs 01/10/25 11:47 Height 5 ft 8 in Weight 176 lb 8 oz BMI 26.8 BP 110/70 Blood Pressure Location Lt brachial Position Sitting Pulse 91 Pulse Source Pulse Oximeter Temp 97.3 F Temp Source Temporal Artery Scan Pulse Oximetry (%) 98 Oxygen Delivery Method Room Air Intake Visit Reasons: Cough/ Worsening Intake Note: Patient is here to follow up on Coughing has gotten worse, sore throat, running nose. Not tested for covid [employer] Mechanic Required: No Transition Nurse: Not Required per policy Accompanied by: Self / Same As Patient Allergies ciprofloxacin Allergy (Unknown, Verified 01/10/25 12:13) Angioedema Medication List - Last Reconciled 01/10/25 by Rosa Ying PA-C albuterol sulfate 90 mcg/actuation 1 inh inhalation QID PRN amoxicillin-pot clavulanate 875-125 mg 1 tab PO BID 10 days azithromycin For 250 mg dose pack: take 500 mg today (day 1), then 250 mg for 4 days (days 2-5) PO codeine-guaifenesin 10-100 mg/5 mL 5 mL PO Q6H PRN empagliflozin (Jardiance) 25 mg PO DAILY glipizide 10 mg PO BID lisinopril 20 mg PO DAILY metformin 1,000 mg PO BID nystatin 400,000 units (4 mL) PO Q6H simvastatin 40 mg PO BEDTIME sitagliptin phosphate 100 mg PO DAILY Tobacco use date assessed: 01/10/25 Fall risk assessment: No Falls in past year Last assessed Fall Risk: 01/10/25 Dental Screening Dental Screen Date: 11/02/24 HPI Cough/ Worsening HPI Details History of Present Illness The patient is a 69-year-old female presenting with persistent cough and suspected pneumonia. The patient reports the onset of symptoms coincided with a trip to [place] on December 14, characterized by a sore throat and runny nose. Although a chest x-ray previously showed clear lungs, the cough persisted. The patient's course included trials of Mucinex, prednisone, and Tessalon Perles with limited relief. Diabetes management was complicated by the prednisone, causing blood glucose levels to exceed 400 mg/dL. Additionally, the patient has oral thrush, likely secondary to inhaler medication. The patient's oxygen saturation remains adequate at 98%. [facility] Medical History Candidal stomatitis Cough Diabetes mellitus with coincident hypertension Diabetes mellitus Surgical History No pertinent past surgical history Family History Mother No problems noted. Father No problems noted. Social History Housing: House Alcohol intake: never Patient Tobacco Use Status: Never used Tobacco e-Cigarette/Vaping Use: Never Used Second Hand Smoke Exposure: No service: No Current occupational status: employed Cognitive needs: No Hearing needs: No Vision needs: Yes Questionnaire Thrive Questionnaire Date Thrive assessed: 11/02/24 PACO-7 AMB Questionnaire PACO-7 Date PACO - 7 assessed: 11/02/24 Source: Developed by Drs. Phu Buckley, Vanessa Garcia, Andres Barnhart and colleagues, with an educational britney from [email or web address]. Review of Systems Const Details: Review of Systems - Respiratory: Reports persistent cough and sore throat; denies previous history of pneumonia. - General: Reports inability to sleep due to cough. - Endocrine: Reports exacerbation of elevated blood sugars following prednisone use. - Oral: Reports white patches on tongue. Physical exam (Primary Care) Vital Signs: Last Vital Signs Temp 97.3 F 01/10/25 11:47 Pulse 91 01/10/25 11:47 BP 110/70 01/10/25 11:47 Pulse Ox 98 01/10/25 11:47 Oxygen Delivery Method Room Air 01/10/25 11:47 BMI result Body Mass Index 26.8 Tobacco/Smoking Status: Tobacco use Status Tobacco use date assessed 01/10/25 01/10/25 11:58 Patient Tobacco Use Status Never used Tobacco 01/10/25 11:58 e-Cigarette/Vaping Use Never Used 01/10/25 11:58 Thrive Assessment: Date of Thrive Assessment Date Thrive assessed 11/02/24 01/10/25 11:58 Const Other: Physical Exam Appearance: Alert. Oriented X3. No acute distress. Head: Normal external exam. Normocephalic. Atraumatic. Eyes: Pupils are equal, round, and reactive to light. Extraocular movements intact. Conjunctiva and sclera normal. Eyelids normal. Ears: External auditory canal normal. Tympanic membranes normal. Throat: Pharynx normal. Uvula midline. Moist mucous membranes. Thrush noted on tongue. Neck: Normal inspection. Neck supple. Full range of motion. No adenopathy. Thyroid Normal. No meningeal signs. No neck mass noted. Cardiovascular: Normal heart rate and rhythm. Heart sound normal. No murmurs noted. Pulses normal throughout. Respiratory: No respiratory distress. Painless inspiration. Breath sounds abnormal with cough noted. No wheezes/rales/rhonchi noted. Chest nontender. No accessory muscle usage noted or decreased air movement noted. Back: Full range of motion noted. Skin: Skin warm and dry. Normal skin color. Normal skin turgor. No rashes/lesions/lacerations noted. Extremities: Extremities exhibit normal range of motion. Neuro: Oriented X 3. No motor deficit. No sensory deficit. Reflexes normal. Coding Level of Care Code Est Pt Level 3 (61153) Complex EM visit Add On G2211 Diagnoses Cough R05.9 Candidal stomatitis B37.0 Assessment & Plan Assessment & Plan (1) Cough: Code(s): R05.9 - Cough, unspecified Category: Medical Plan: A chest x-ray and tests for COVID, RSV, and flu are scheduled. Antibiotic therapy with Augmentin and Z-Farooq is initiated. Robitussin with Codeine will manage cough symptoms. Close monitoring will avoid steroids unless necessary. Condition Is acute and stable will continue to monitor (2) Candidal stomatitis: Code(s): B37.0 - Candidal stomatitis Category: Medical Plan: Prescribed Nystatin with advice on oral hygiene post-inhaler usage to address and prevent thrush. Condition is acute and stable will continue to monitor. Plan Plan Patient was informed and verbally consented to the use of an ambient scribe for clinic note documentation during this visit. 1. Type 2 Diabetes Mellitus Prednisone use is deferred due to hyperglycemic episodes. Continuation of current diabetes management unless clinical needs require reevaluation. 2. Persistent Cough And Suspected Bacterial Pneumonia A chest x-ray and tests for COVID, RSV, and flu are scheduled. Antibiotic therapy with Augmentin and Z-Farooq is initiated. Robitussin with Codeine will thi ge cough symptoms. Close monitoring will avoid steroids unless necessary. 3. Candidal stomatitis Prescribed Nystatin with advice on oral hygiene post-inhaler usage to address and prevent thrush. Discussion Notes I discussed with the patient that her symptoms and clinical presentation are suggestive of bacterial pneumonia, despite a previous clear x-ray. The plan includes antibiotics Augmentin and Z-Farooq, along with Robitussin with Codeine to control the cough. Given her diabetic condition, we will avoid prednisone due to the severe impact on her blood sugar. The patient was informed about thrush from inhaler use and prescribed Nystatin. I emphasized the necessity of dental hygiene post-inhaler use to prevent thrush recurrence. The patient consented to all treatment plans and comprehended the need to avoid steroids for now. I advised follow-up within a week and instructed on precautions related to oxygen levels. Patient Instructions - Take Augmentin twice daily for 10 days. - Take two Z-Farooq pills today, followed by one daily for four more days. - Use Robitussin with Codeine as prescribed. - Use albuterol inhaler as needed, every 4-6 hours. - Swish and swallow Nystatin for oral thrush management. - Purchase a pulse oximeter to monitor oxygen levels, ensuring they stay above 90%. - Rinse mouth after using the inhaler to prevent thrush. - Follow up with me in one week or sooner if breathing difficulties or symptoms worsen. Orders: Orders SARS-CoV2/FLU/RSV Today R05.9 - Cough, unspecified XR chest 2V Today R05.9 - Cough, unspecified Medications: New azithromycin For 250 mg dose pack: take 500 mg today (day 1), then 250 mg for 4 days (days 2-5) PO 6 tabs 0RF albuterol sulfate 90 mcg/actuation 1 inh inhalation QID PRN 6.7 grams 0RF shortness of breath or wheezing codeine-guaifenesin 10-100 mg/5 mL 5 mL PO Q6H PRN 120 mL 0RF cough nystatin administer 1/2 of dose in each side of the mouth 400,000 units (4 mL) PO Q6H 480 mL 1RF Swish in mouth several minutes and then swallow amoxicillin-pot clavulanate 875-125 mg 1 tab PO BID 20 tabs 0RF 10 days Patient Instructions: Patient Instructions - Take Augmentin twice daily for 10 days. - Take two Z-Farooq pills today, followed by one daily for four more days. - Use Robitussin with Codeine as prescribed. - Use albuterol inhaler as needed, every 4-6 hours. - Swish and swallow Nystatin for oral thrush management. - Purchase a pulse oximeter to monitor oxygen levels, ensuring they stay above 90%. - Rinse mouth after using the inhaler to prevent thrush. - Follow up with me in one week or sooner if breathing difficulties or symptoms worsen.
[2025-01-10 11:47] VITALS: BP 110/70; PULSE 91; TEMP 36.3; O2SAT 98; BMI 26.8
--- OUTSIDE RECORDS SUMMARY | 2025-01-10 13:59 | XMS_ITS | Data Portability ---
Author Organization [facility] [id number] Address [address] [place] [address] Assessment No assessment recorded. Plan of Treatment [...] Address Organization Details Recorded Time Hypertensive disorder 67053658 Active OSCAR ALTAMIRANO RA null, PA - [facility] 2 10:06:43 Diabetes mellitus 83693903 Active OSCARUSHA ALTAMIRANO RA null, PA - [facility] 2 10:06:53 Hypercholestero lemia 79648390 Active OSCARUSHA ALTAMIRANO RA null, PA - [facility] 2 10:07:02 Problem Notes None recorded. Medical Equipment None Reported. Allergies Allergen ID Allergen Name Allergen Category Reaction Reaction Severity Criticality Documentation Date Start Date Code Code System Note Provider Name and Address Organization Details Recorded Time 81654 ciproflox acin medicatio n anaphylax is Not [...] saturation in Arterial blood by Pulse oximetry Pain severity - 0-10 verbal numeric rating [Score] - Reported Heart rate Respiratory rate Body temperature Systolic blood pressure Diastolic blood pressure Provider Name and Address Organization Details Last Updated DateTime 2 172.72 cm 27.4 kg/m2 76725.6 3 g 98 % 98 % 0 70 /min 17 /min 97.7 [degF] 140 mm[Hg] 70 mm[Hg] OSCAR ALTAMIRANO RA PA - [facility] 10:03:30 Social History Question Answer Notes LastModified by Organizat ion Details LastModified Time Tobacco Smoking Status Never Smoker OSCAR cobos PA - [facility] 09/19/2022 10:07:31 What Is [...] SNOMED-CT Code Diagnosis ICD10 Code Diagnosis Note [id number] [address] [place] [address] 08/29/2018 14:09:51 08/29/2018 17:12:45 [id number] [address] [address] 01/03/2022 12:45:19 01/03/2022 13:46:28 [id number] [address] [facility] [place] [address] 01/09/2022 09:23:10 01/09/2022 11:51:29 [id number] [address] [place] [address] 10/06/2017 10:27:06 10/06/2017 10:48:41 [id number] [address] [facility] [address] [facility] [place] [address] 10/18/2019 16:27:02 10/18/2019 19:18:15 [id number] Tulio Garcia, [place] [address] [place] [address] 09/19/2022 08:27:53 09/19/2022 10:26:13 COVID-19 [id number] U07.1 COVID positiveRe commend isolation x 5 [...] Curiel Member ID Guarantor Name 10/18/2019 1 [facility] [employer] [facility] [id number] Marly Bai [place] [id number] Marly [place] 01/03/2022 1 [facility] [employer] [facility] [id number] Marly A [place] [id number] Marly [place] 01/09/2022 1 [facility] [employer] [facility] [id number] Marly A [place] [id number] Marly [place] 09/19/2022 2 [place] Marly Bai [place] [id number] Marly [place] 09/19/2022 1 [place]MEDICARE [place]ACEMENT PPO) Marly [place] [id number] Marly Whit Notes Date Note Type Note Provider Name [...] Garcia, DO [address] [place], [address], PA - [facility] 09/19/2022 10:23:22 OBGyn Episode No OBEpisode recorded.
== END 2025-01-10 12:13 | disposition home or self-care (01) ==
LOC: HO.HMCH 11:29
PROVIDERS: PCP Internal Medicine; Visit Provider Physician Assistant Medical
DX: R05.9 Cough, unspecified (principal); B37.0 Candidal stomatitis

== ENCOUNTER 2025-01-10 11:29 | Outpatient (REF) | payer MEDICARE, SELFPAY ==
--- NOTE | ~2025-01-10 | XR_ITS ---
EXAMINATION: XR CHEST CLINICAL INFORMATION: R05.9 - Cough, unspecified COMPARISON: None available. TECHNIQUE: 2 views of the chest were obtained. FINDINGS: The cardiac, hilar, and mediastinal contours are normal. Aortic mural calcification. The lungs are clear bilaterally. There is no pneumothorax or pleural effusion. There is no focal osseous or soft tissue abnormality. Mild spinal degenerative changes XR/XR chest 2V IMPRESSION: No active pulmonary disease. Electronically signed by: Enrique Perez MD 01/10/2025 01:00 PM EDT
[2025-01-10 13:19] LABS: Influenza A PCR NEGATIVE (Negative); Influenza B PCR NEGATIVE (Negative); Resp Syncy Virus RNA Qual PCR NEGATIVE (Negative); SARS COV2 PCR INHOUSE NEGATIVE (Negative)
== END 2025-01-10 11:30 | disposition home or self-care (01) ==
LOC: HO.XRAY 11:29
PROVIDERS: PCP Internal Medicine; Visit Provider Physician Assistant Medical
DX: R05.9 Cough, unspecified (principal); B37.0 Candidal stomatitis; E11.9 Type 2 diabetes mellitus without complications
CPT/HCPCS: 0241U; 71046; 99212

== ENCOUNTER → 2025-01-10 12:41 | Outpatient (BNV) | payer MEDICARE, SELFPAY | PROVIDERS: PCP Internal Medicine; Visit Provider Radiology Diagnostic Radiology | DX: R05.9 Cough, unspecified (principal) | CPT/HCPCS: 71046 ==

== ENCOUNTER 2025-01-24 16:06 | Outpatient (AMB) | payer MEDICARE, SELFPAY ==
--- NOTE | 2025-01-24 16:14 | A.OFFPC_ITS ---
Vital Signs 01/24/25 16:16 Height 5 ft 8 in Weight 184 lb 2 oz BMI 28.0 BP 134/62 Blood Pressure Location Lt brachial Position Sitting Pulse 68 Pulse Source Pulse Oximeter Temp 97.1 F Temp Source Temporal Artery Scan Pulse Oximetry (%) 98 Oxygen Delivery Method Room Air Intake Visit Reasons: 1 week f/u Intake Note: Patient is here to follow up on Candidal Stomatitis. Concrete Smoother Required: No Jumpbasting Collar Baster: Not Required per policy Accompanied by: Self / Same As Patient Allergies ciprofloxacin Allergy (Unknown, Verified 01/24/25 16:55) Angioedema Medication List - Last Reconciled 01/24/25 by Rosa Ying PA-C albuterol sulfate 90 mcg/actuation 1 inh inhalation QID PRN empagliflozin (Jardiance) 25 mg PO DAILY glipizide 10 mg PO BID lisinopril 20 mg PO DAILY loratadine-pseudoephedrine 5-120 mg ER (Claritin-D 12 Hour) 1 tab PO Q12H metformin 1,000 mg PO BID nystatin 400,000 units (4 mL) PO Q6H simvastatin 40 mg PO BEDTIME sitagliptin phosphate 100 mg PO DAILY Tobacco use date assessed: 01/24/25 Fall risk assessment: No Falls in past year Last assessed Fall Risk: 01/24/25 Dental Screening Dental Screen Date: 11/02/24 HPI 1 week f/u HPI Details The patient is a 69-year-old female presenting for follow-up on diabetes management and resolution of oral thrush. She experienced oral thrush, which responded well to treatment. Her Type 2 Diabetes Mellitus is under control with an A1c of 7.1%. She has a history of TIA earlier this year and has consulted cardiology and neurology services following the event. Her chronic cough persists, and she has noted some persistent ear fluid. Her blood pressure is under control with lisinopril. Past use of prednisone was not favorable, gi mario her Type 2 Diabetes and resulting elevated blood glucose levels. 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 - Housing: Lives alone. - Family Status: Single with a supportiv e brother. - Functional Status: Uses a laptop and [employer] phone predominantly for work. Actively manages her business. - Level of Activity: Works on a limited schedule, which includes leisure and relaxation. [facility] Medical History (Updated 01/24/25 @ 16:58 by Rosa Ying PA-C) Overweight with body mass index (BMI) of 28 to 28.9 in adult Candidal stomatitis Cough Diabetes mellitus with coincident hypertension Diabetes mellitus Surgical History No pertinent past surgical history Family History Mother No problems noted. Father No problems noted. Social History Housing: House Alcohol intake: never Patient Tobacco Use Status: Never used Tobacco e-Cigarette/Vaping Use: Never Used Second Hand Smoke Exposure: No service: No Current occupational status: employed Cognitive needs: No Hearing needs: No Vision needs: Yes Questionnaire Thrive Questionnaire Date Thrive assessed: 11/02/24 AUDIT C Alcohol Use Questionnaire (AUDIT-C) 3. How often do you have six or more drinks on one occasion?: Never Total Score: 0 Score Reviewed/Action Taken: No PACO-7 AMB Questionnaire PACO-7 Date PACO - 7 assessed: 11/02/24 Source: Developed by Drs. Phu Bucklye, Vanessa Garcia, Andres Barnhart and colleagues, with an educational britney from [employer]. Review of Systems Const Details: - Constitutional: Reports feeling better with improved appearance. - Respiratory: Reports a chronic cough. Denies shortness of breath. - Cardiovascular: Denies leg swelling. - Endocrine: Reports well-managed diabetes. - Ears, Nose, and Throat: Reports significant improvement in thrush and fluid in the ears. Denies current soreness or lesions in the mouth. - Neurological: Denies further episodes after TIA. Physical exam (Primary Care) Vital Signs: Last Vital Signs Temp 97.1 F 01/24/25 16:16 Pulse 68 01/24/25 16:16 BP 134/62 01/24/25 16:16 Pulse Ox 98 01/24/25 16:16 Oxygen Delivery Method Room Air 01/24/25 16:16 Care Plan Goal for BP management: <130/90 at Goal BMI result Body Mass Index 28.0 BMI Assessment/Plan discussion: High BMI High, discussed plan: lifestyle, weight reduction, dietary, physical activity and alcohol moderation Tobacco/Smoking Status: Tobacco use Status Tobacco use date assessed 01/24/25 01/24/25 16:15 Patient Tobacco Use Status Never used Tobacco 01/24/25 16:14 e-Cigarette/Vaping Use Never Used 01/24/25 16:14 Thrive Assessment: Date of Thrive Assessment Date Thrive assessed 11/02/24 01/24/25 16:14 Const Other: Appearance: Alert. Oriented X3. No acute distress. Head: Normal external exam. Normocephalic. Atraumatic. Eyes: Pupils are equal, round, and reactive to light. Extraocular movements intact. Conjunctiva and sclera normal. Eyelids normal. Ears: External auditory canal normal. Tympanic membranes show a little bit of fluid. Throat: Pharynx normal. Uvula midline. Moist mucous membranes. Neck: Normal inspection. Neck supple. Full range of motion. No meningeal signs. Cardiovascular: Normal heart rate and rhythm. Heart sound normal. No murmurs noted. Pulses normal throughout. Respiratory: No respiratory distress. Painless inspiration. Breath sounds normal. No wheezes/rales/rhonchi noted. Chest nontender. No accessory muscle usage noted or decreased air movement noted. Back: Full range of motion noted. Skin: Skin warm and dry. Normal skin color. Normal skin turgor. No rashes/lesions/lacerations noted. Extremities: No lower extremity edema. Extremities exhibit normal range of motion. Extremities nontender. Results AMB Hemoglobin A1c AMB Hemoglobin A1c 7.1 % Last Edit by MAYKEL De Jesus on 01/24/25 16:29 Results Reviewed Results Reviewed: - Labs: Hemoglobin A1c: 7.1% Coding Level of Care Code Est Pt Level 3 (00548) Complex EM visit Add On G2211 Diagnoses Candidal stomatitis B37.0 Cough R05.9 TIA (transient ischemic attack) G45.9 Hypertension I10 Hyperlipidemia E78.5 Diabetes mellitus E11.9 Overweight with body mass index (BMI) of 28 to 28.9 in adult E66.3; Z68.28 Assessment & Plan Assessment & Plan (1) Candidal stomatitis: Code(s): B37.0 - Candidal stomatitis Category: Medical Plan: Condition has completely resolved. Will continue to monitor for reoccurrence. (2) Cough: Code(s): R05.9 - Cough, unspecified Category: Medical Plan: Productive cough has resolved. Patient still has mild residual chronic cough. Condition has improved will continue to monitor. (3) TIA (transient ischemic attack): Code(s): G45.9 - Transient cerebral ischemic attack, unspecified Category: Medical Plan: Condition has not reoccurred. Will continue to monitor. (4) Hypertension: Code(s): I10 - Essential (primary) hypertension Category: Medical Plan: Blood pressure goal less than 130/90. At goal today. Patient to continue lisinopril 20 mg daily. Condition is chronic and stable continue to monitor. (5) Hyperlipidemia: Code(s): E78.5 - Hyperlipidemia, unspecified Category: Medical Plan: Patient to continue simvastatin 40 mg at bedtime. Condition is chronic and stable continue to monitor. (6) Diabetes mellitus: Comment: 40 min reviewing chart eval patient and documenting Code(s): E11.9 - Type 2 diabetes mellitus without complications Category: Medical Plan: A1c level go less than 7.0. A1c level today is 7.1. Patient to continue Jardiance 25 mg daily, glipizide 10 mg p.o. b.i.d., metformin 1000 mg p.o. b.i.d. and sitagliptin 100 mg daily. Condition is chronic and stable continue to monitor. (7) Overweight with body mass index (BMI) of 28 to 28.9 in adult: Code(s): E66.3 - Overweight; Z68.28 - Body mass index [BMI] 28.0-28.9, adult Category: Medical Plan: Patient to improve her diet and exercise regimen. Condition is chronic and stable continue to monitor. Plan Plan Patient was informed and verbally consented to the use of an ambient scribe for clinic note documentation during this visit. 1. Type 2 Diabetes Mellitus Plan: Continue diabetes management, monitor A1c levels, follow up in three months. 2. Oral Thrush Plan: Report if symptoms reoccur; no current treatment necessary. 3. Chronic Cough Plan: Monitor and contact if symptoms change or worsen. 4. Elevated Blood Pressure Plan: Continue lisinopril, re-evaluate at follow-up. 5. Fluid In Ears Plan: Suggest Claritin-D, prescription provided if needed. 6. History Of Transient Ischemic Attack Tia Plan: Ongoing follow-up with neurology and cardiology. During the visit, we discussed the management of the patient's Type 2 Diabetes Mellitus, with emphasis on maintaining the current regimen given the satisfactory A1c level of 7.1%. The resolution of oral thrush was acknowledged, with the patient advised to report any recurrence. For her chronic cough and fluid in the ears, I recommended Claritin-D to help alleviate symptoms and wrote a prescription for it. We reviewed her history of elevated blood pressure and found it well-managed with lisinopril. I advised on the importance of regular follow-up and monitoring of her blood pressure and diabetes, aiming for continued stability. We reviewed her history of TIA, affirming the need for continued neurological and cardiological follow-up. I emphasized the importance of routine evaluations and maintaining open communication for any health changes. Orders: Orders C Reactive Protein Today Z00.00 - Encounter for general adult medical examination without abnormal findings Lipid Panel Today Z00.00 - Encounter for general adult medical examination without abnormal findings Microalbumin, Random (w Creat) Today E11.9 - Type 2 diabetes mellitus without complications TSH reflex Free T4 Today Z00.00 - Encounter for general adult medical examination without abnormal findings AMB Hemoglobin A1c Today E11.9 - Type 2 diabetes mellitus without complications Complete Blood Count Auto Diff Today Z00.00 - Encounter for general adult medical examination without abnormal findings Comprehensive Arboles. Panel Fast Today Z00.00 - Encounter for general adult medical examination without abnormal findings Erythrocyte Sedimentation Rate Today Z00.00 - Encounter for general adult medical examination without abnormal findings Liver Panel Today Z00.00 - Encounter for general adult medical examination without abnormal findings Magnesium Today Z00.00 - Encounter for general adult medical examination without abnormal findings Vitamin D 25-OH Total Today Z00.00 - Encounter for general adult medical examination without abnormal findings Vitamin B12 and Folate Today Z00.00 - Encounter for general adult medical examination without abnormal findings Medications: New loratadine-pseudoephedrine 5-120 mg ER (Claritin-D 12 Hour) 1 tab PO Q12H 30 tabs 0RF Patient Instructions: - Continue current diabetes medications and follow up in three months to re- check A1c. - Take Claritin-D as needed for ear fluid and related symptoms. - Monitor cough and report any changes. - Maintain regular blood pressure medication. Check blood pressure as advised. - Attend follow-up appointments with neurology and cardiology as scheduled. - Call the office if there are any changes in symptoms or new concerns arise.
[2025-01-24 16:16] VITALS: BP 134/62; PULSE 68; TEMP 36.2; O2SAT 98; BMI 28.0
--- OUTSIDE RECORDS SUMMARY | 2025-01-24 18:32 | XMS_ITS | Data Portability ---
Author Organization [facility] [address] [address] Address [address] [place] [address] Assessment No assessment recorded. Plan of Treatment [...] Address Organization Details Recorded Time Hypertensive disorder 04362011 Active OSCAR ALTAMIRANO RA null, PA - [facility] 2 10:06:43 Diabetes mellitus 64478480 Active OSCARUSHA ALTAMIRANO RA null, PA - [facility] 2 10:06:53 Hypercholestero lemia 14620607 Active OSCARUSHA ALTAMIRANO RA null, PA - [facility] 2 10:07:02 Problem Notes None recorded. Medical Equipment None Reported. Allergies Allergen ID Allergen Name Allergen Category Reaction Reaction Severity Criticality Documentation Date Start Date Code Code System Note Provider Name and Address Organization Details Recorded Time 07138 ciproflox acin medicatio n anaphylax is Not [...] Updated DateTime 2 172.72 cm 27.4 kg/m2 59063.6 3 g 98 % 98 % 0 70 /min 17 /min 97.7 [degF] 140 mm[Hg] 70 mm[Hg] OSCAR ALTAMIRANO RA PA - [facility] 10:03:30 Social History Question Answer Notes [...] SNOMED-CT Code Diagnosis ICD10 Code Diagnosis Note [id number] [address] [place] [address] 08/29/2018 14:09:51 08/29/2018 17:12:45 [id number] [address] [place] [address] 01/03/2022 12:45:19 01/03/2022 13:46:28 [id number] [address] [facility] [place] [address] 01/09/2022 09:23:10 01/09/2022 11:51:29 [id number] [address] [place] [address] 10/06/2017 10:27:06 10/06/2017 10:48:41 [id number] [address] [facility] [address] [place] [address] 10/18/2019 16:27:02 10/18/2019 19:18:15 [id number] Tulio Garcia, DO [address] [place] [address] 09/19/2022 08:27:53 09/19/2022 10:26:13 COVID-19 [id number] U07.1 COVID positiveRe commend isolation x 5 [...] Curiel Member ID Guarantor Name 10/18/2019 1 [facility] [place] [facility] [place] [id number] Marly Bai Whit [id number] Marly [place] 01/03/2022 1 [facility] [place] [facility] [place] [id number] Marly A [place] [id number] Marly [place] 01/09/2022 1 [facility] [place] [facility] [place] [id number] Marly Bai [place] [id number] Marly [place] 09/19/2022 2 [place] Marly Bai Whit [id number] Marly [place] 09/19/2022 1 [place] (MEDICARE [place]PLACEMENT PPO) Marly Whit [id number] Marly Whit Notes Date Note Type Note [...] Garcia, DO [address] [place], [address], PA - [facility] 09/19/2022 10:23:22 OBGyn Episode No OBEpisode recorded.
== END 2025-01-24 16:47 | disposition home or self-care (01) ==
LOC: HO.HMCH 16:06
PROVIDERS: PCP Internal Medicine; Visit Provider Physician Assistant Medical
DX: E11.69 Type 2 diabetes mellitus with other specified complication (principal); E66.3 Overweight; Z68.28 Body mass index [BMI] 28.0-28.9, adult; B37.0 Candidal stomatitis; R05.9 Cough, unspecified; G45.9 Transient cerebral ischemic attack, unspecified; I10 Essential (primary) hypertension; E78.5 Hyperlipidemia, unspecified

== ENCOUNTER → 2025-01-24 16:06 | Outpatient (BNVA) | payer MEDICARE, SELFPAY | PROVIDERS: PCP Internal Medicine; Visit Provider Physician Assistant Medical | DX: E11.9 Type 2 diabetes mellitus without complications (principal); B37.0 Candidal stomatitis; R05.9 Cough, unspecified; I10 Essential (primary) hypertension; E78.5 Hyperlipidemia, unspecified; Z86.73 Personal history of transient ischemic attack (TIA), and cerebral infarction without residual deficits | CPT/HCPCS: 83036; 99212 ==

== ENCOUNTER 2025-04-10 07:14 | Outpatient (REF) | payer MEDICARE, SELFPAY ==
--- OUTSIDE RECORDS SUMMARY | 2025-04-10 07:16 | XMS_ITS | Data Portability ---
Author Organization [facility] [address] Address [address] [place] [address] Assessment No assessment recorded. Plan of Treatment [...] Address Organization Details Recorded Time Hypertensive disorder 27957088 Active OSCARUSHA ALTAMIRANO RA null, PA - [facility] 2 10:06:43 Diabetes mellitus 41324685 Active OSCAR SHANTELLE-BROWN ANDERSON null, PA - [facility] 2 10:06:53 Hypercholestero lemia 29499176 Active OSCARUSHA ALTAMIRANO RA null, PA - [facility] 2 10:07:02 Problem Notes None recorded. Medical Equipment None Reported. Allergies Allergen ID Allergen Name Allergen Category Reaction Reaction Severity Criticality Documentation Date Start Date Code Code System Note Provider Name and Address Organization Details Recorded Time 05424 ciproflox acin medicatio n anaphylax is Not [...] Heart rate Respiratory rate Body temperature Systolic And Diastolic Provider Name and Address Organization Details Last Updated DateTime 2 172.72 cm 27.4 kg/m2 86562.6 3 g 98 % 98 % 70 /min 17 /min 97.7 [degF] 140/70 mm[Hg] OSCAR ALTAMIRANO RA PA [facility] 10:03:30 Social History Question Answer Notes LastModified by Frock Advisor Details LastModified Time Tobacco Smoking Status Never Smoker OSCAR cobos PA [facility] 09/19/2022 10:07:31 Have You Had Direct Contact, Or Contact During Intimacy, With Monkeypox Rash, Scabs, Or Body Fluids From A Person With Monkeypox? No Information not available 09/19/2022 Have You Recently Traveled Abroad? No Information not available 09/19/2022 Sex: Unknown Functional Status Question Answer Note LastModified by Frock Advisor Details LastModified Time Do you use any illicit or recreational drugs? No Information not available 09/19/2022 Do you or have you ever used any other forms of tobacco or nicotine? No Information not available 09/19/2022 What is your level of alcohol consumption? None Information not available 09/19/2022 Mental Status None recorded. Family History Relationship [...] SNOMED-CT Code Diagnosis ICD10 Code Diagnosis Note [id number] [address] [place] [address] 08/29/2018 14:09:51 08/29/2018 17:12:45 [id number] [address] [facility] [place] [address] 01/03/2022 12:45:19 01/03/2022 13:46:28 [id number] [address] [facility] [place] [address] 01/09/2022 09:23:10 01/09/2022 11:51:29 [id number] [address] [facility] [place] [address] 10/06/2017 10:27:06 10/06/2017 10:48:41 [id number] [address] [place] [address] 10/18/2019 16:27:02 10/18/2019 19:18:15 [id number] Tulio Garcia, [address] [facility] [place] [address] 09/19/2022 08:27:53 09/19/2022 10:26:13 COVID-19 [id number] U07.1 COVID positiveRe commend isolation x 5 [...] wear a mask. For travel guidance, see [facility] s Travel webpage.Do not travel.Sta y home and separate from others as much as possible.U se a separate bathroom, if possible.T annika steps to improve ventilatio n at home, if possible.D on t share personal household items, like cups, [...] e masking (see below).For travel guidance, see [facility] s Travel webpage. Health Concerns Section Related Observation LastModified by Organization Detai ls LastModified Time None Recorded Concern Status LastModified by Organization Details LastModified Time None Recorded Advance Directives Directive None Recorded Payers Insurance Date Sequence Insurance Name Policy Number Policy Curiel Covered Member ID Curiel Member ID Guarantor Name 09/19/2022 1 [employer] PLAN (HMO) [id number] Marly A [place] [id number] [employer] 09/19/2022 2 [place] Marly A [place] [id number] [employer] 09/19/2022 1 [place] (MEDIC[place]PLACEMENT PPO) Marly Whit [id number] [employer] Notes Date Note Type Note Provider Name [...] Garcia, DO [address] [place], [address], PA - [facility] 09/19/2022 10:23:22 OBGyn Episode No OBEpisode recorded.
[2025-04-10 07:38] LABS: MANUAL DIFF FLAG NO
[2025-04-10 08:29] LABS: Hematocrit 37.0 % (37.0-47.0); Hemoglobin 12.2 g/dl (12.0-16.0); Imm Gran Abs Auto 0.02 X10*3/uL (0.00-0.03); Imm Gran Pct Auto 0.4 % (0.0-0.4); Lymphocytes Absolute Auto 1.2 X10*3/uL (1.2-4.9); Mean Corpuscular HGB Conc 33.0 g/dl (31.0-35.0); Mean Corpuscular Hemoglobin 29.1 pg (27.0-33.0); Mean Corpuscular Volume 88.3 fL (80.0-98.0); NRBC Abs Auto 0.000 X10*3/uL (0.0-0.012); NRBC Pct Auto 0.0 /100WBC (0.0-0.2); Platelet Count 89 X10*3/uL (160-400); Red Blood Count 4.19 X10*6/uL (4.20-5.50); White Blood Count 4.9 X10*3/uL (4.8-10.8)
[2025-04-10 09:07] LABS: Alanine Aminotransferase 44 U/L (0-31); Albumin Level 4.2 g/dL (3.5-5.0); Alkaline Phosphatase 82 U/L (39-117); Anion Gap 13 (12-20); Aspartate Amino Transferase 39 U/L (5-31); Blood Urea Nitrogen 35 mg/dL (9-16); Calcium 9.0 mg/dL (8.4-10.2); Carbon Dioxide 22 mmol/L (22-29); Chloride 112 mmol/L (96-108); Cholesterol 137 mg/dL (<200); Estimated Glomerular Filt Rate 44; HDL Cholesterol 41 mg/dL (>40); Magnesium 1.6 mg/dL (1.6-2.6); Potassium 4.8 mmol/L (3.3-5.1); Sodium 142 mmol/L (135-145); Total Protein 6.7 g/dL (6.5-8.0); Triglycerides 163 mg/dL (<150)
[2025-04-10 09:08] LABS: Microalbum/Creatinine Ratio Ur 18.6 ug/mg cr (<30)
[2025-04-10 09:54] LABS: Folate 7.7 ng/mL (> or = 4.0); Vitamin B12 287 pg/mL (200-900)
== END 2025-04-10 07:15 | disposition home or self-care (01) ==
LOC: HO.LAB 07:14
PROVIDERS: PCP Physician Assistant Medical; Visit Provider Physician Assistant Medical
DX: Z00.00 Encounter for general adult medical examination without abnormal findings (principal); E11.9 Type 2 diabetes mellitus without complications; E55.9 Vitamin D deficiency, unspecified; D69.6 Thrombocytopenia, unspecified; E78.1 Pure hyperglyceridemia; E86.0 Dehydration; R74.01 Elevation of levels of liver transaminase levels
CPT/HCPCS: 36415; 80048; 80053; 80061; 80076; 82043; 82248; 82306; 82570; 82607; 82746; 83735; 84443; 85025; 85652; 86140

== ENCOUNTER 2025-04-24 13:38 | Outpatient (AMB) | payer MEDICARE, SELFPAY ==
--- NOTE | 2025-04-24 13:41 | A.OFFPC_ITS ---
Vital Signs 04/24/25 13:43 Height 5 ft 8 in Weight 176 lb 4 oz BMI 26.8 BP 120/50 L Blood Pressure Location Lt brachial Position Sitting Respiration 16 Pulse 81 Pulse Source Pulse Oximeter Temp 97.3 F Temp Source Temporal Artery Scan Pulse Oximetry (%) 96 Oxygen Delivery Method Room Air Intake Visit Reasons: 3 month f/u Intake Note: Patient is here to follow up on Candidal Stomatitis. Glass Engraver Required: No Highway Landscape Architect: Not Required per policy Accompanied by: Self / Same As Patient Allergies ciprofloxacin Allergy (Unknown, Verified 04/24/25 14:16) Angioedema Medication List - Last Reconciled 04/24/25 by Rosa Ying PA-C aspirin 81 mg PO DAILY atorvastatin 80 mg PO DAILY cholecalciferol (vitamin D3) 1,250 mcg PO QWEEK 3 months empagliflozin (Jardiance) 25 mg PO DAILY glipizide 10 mg PO BID lisinopril 20 mg PO DAILY loratadine-pseudoephedrine 5-120 mg ER (Loratadine-D) 1 tab PO Q12H metformin 1,000 mg PO BID sitagliptin phosphate 100 mg PO DAILY Tobacco use date assessed: 01/24/25 Fall risk assessment: No Falls in past year Last assessed Fall Risk: 01/24/25 Dental Screening Dental Screen Date: 01/24/25 Did you have a dental visit in the last 12 months?: Yes Did you have a dental problem in the last 6 months where you did not have access to dental care?: No Was dental information given to patient?: Patient has dentist HPI 3 month f/u HPI Details The patient is a 69-year-old female presenting for a new patient appointment as Dr. Marie retired, a wellness visit and management of chronic conditions. The patient has a history of vitamin D deficiency, which was identified through blood work conducted on April 10. She has been taking a high-dose vitamin D supplement once a week, which has normalized her levels. The patient has thrombocytopenia, with a platelet count of 89,000, which has been low since 2020. She reports easy bruising and occasional bleeding, which are consistent with her low platelet count. The patient has chronic kidney disease, with a BUN of 35 and a GFR of 44, indicating reduced kidney function. This condition has been present since 2020, and she is currently on medications that may affect kidney function, including lisinopril. The patient has type 2 diabetes mellitus, with a recent A1c of 7.0, showing a slight improvement from 7.1 in January. She is on multiple medications for diabetes management, including Jardiance and glipizide. The patient experiences symptoms of allergic rhinitis, including postnasal drip, particularly after eating. She has been using loratadine without significant relief and is considering switching to Radha. For preventative care, the patient is due for a mammogram and a bone density scan, which have been scheduled at [facility]. Social History - Exercise: Patient is trying to exercis e and manage weight, reports difficulty with weight loss and abdominal changes. [facility], [facility] Medical History (Updated 04/24/25 @ 16:04 by Rosa Ying PA-C) Overweight with body mass index (BMI) of 26 to 26.9 in adult Preventative health care Allergic rhinitis Type 2 diabetes mellitus with hemoglobin A1c goal of less than 7.0% Annual physical exam Establishing care with new doctor, encounter for Thrombocytopenia CKD (chronic kidney disease) Vitamin D deficiency High triglycerides Elevated ALT measurement Low platelet count Dehydration Overweight with body mass index (BMI) of 28 to 28.9 in adult Candidal stomatitis Cough Diabetes mellitus with coincident hypertension Diabetes mellitus Surgical History No pertinent past surgical history Family History Mother No problems noted. Father No problems noted. Social History Housing: House Alcohol intake: never Patient Tobacco Use Status: Never used Tobacco e-Cigarette/Vaping Use: Never Used Second Hand Smoke Exposure: No service: No Current occupational status: employed Cognitive needs: No Hearing needs: No Vision needs: Yes Questionnaire PHQ-9 Over the last 2 weeks, how often have you been bothered by any of the following problems? 1. Little interest or pleasure in doing things: not at all 2. Feeling down, depressed, or hopeless: not at all 3. Trouble falling or staying asleep, or sleeping too much: not at all 4. Feeling tired or having little energy: not at all 5. Poor appetite or overeating: not at all 6. Feeling bad about yourself - or that you are a failure or have let yourself or your family down: not at all 7. Trouble concentrating on things, such as reading the newspaper or watching television: not at all 8. Moving or speaking so slowly that other people could have noticed. Or the opposite - being so fidgety or restless that you have been moving around a lot more than usual: not at all 9. Thoughts that you would be better off or of hurting yourself in some way: not at all Total score: 0 Depression Screening Interpretation: Negative Depression Screening Done: Yes 61446 - PHQ-9 Billing: Yes Source: Developed by Drs. Phu Buckley, Vanessa Garcia, Andres Barnhart and colleagues, with an educational britney from [employer]. Thrive Questionnaire Date Thrive assessed: 11/02/24 I am a: Patient What is your living situation today?: I have a steady place to live Within the past 12 months, did the food you bought not last and you didn't have the money to get more?: Never true Within the past 12 months, did you worry whether your food would run out before you got money to buy more?: Never true Do you have trouble paying for medicines?: No Do you have trouble getting transportation to medical appointments?: No Do you have trouble paying your heating and electricity bill?: No Do you have trouble taking care of your child, family member or friend?: No Do you have trouble with day-to-day activities such as bathing, preparing meals, shopping, managing finances, etc.?: No Are you currently unemployed and looking for a job?: No Are you interested in more education?: No Please select the resources that you would like help with: None Currently or been in a relationship where the following occur: No concerns reported THRIVE Score: 0 AUDIT C Alcohol Use Questionnaire (AUDIT-C) 1. How often do you have a drink containing alcohol?: Never 3. How often do you have six or more drinks on one occasion?: Never Total Score: 0 Score Reviewed/Action Taken: No PACO-7 AMB Questionnaire PACO-7 Date PACO - 7 assessed: 01/24/25 Feeling nervous, anxious, or on edge: 0 = Not at all Not being able to stop or control worryin = Not at all Worrying too much about different things: 0 = Not at all Trouble relaxin = Not at all Being so restless that it is hard to sit still: 0 = Not at all Becoming easily annoyed or irritable: 0 = Not at all Feeling afraid as if something awful might happen: 0 = Not at all Total PACO-7 score (0-4 normal; 5-9 mild; 10-14 moderate; 15-21 severe): 0 Source: Developed by Drs. Phu Buckley, Vanessa Garcia, Andres Barnhart and colleagues, with an educational britney from [employer]. PACO-7 Assessment Billing PACO-7 Assessment Tool: PACO-7 Assessment 41834 Review of Systems Const Details: - Hematologic: Reports easy bruising and occasional bleeding. - Renal: Denies any new symptoms related to kidney function. - Endocrine: Reports stable diabetes management, denies new symptoms. - Respiratory: Reports postnasal drip, particularly after eating. - Gastrointestinal: Denies abdominal pain. All systems reviewed & are unremarkable except as noted in HPI and below Physical exam (Primary Care) Vital Signs: Last Vital Signs Temp 97.3 F 04/24/25 13:43 Pulse 81 04/24/25 13:43 Resp 16 04/24/25 13:43 BP 120/50 L 04/24/25 13:43 Pulse Ox 96 04/24/25 13:43 Oxygen Delivery Method Room Air 04/24/25 13:43 Care Plan Goal for BP management: <140/90 at Goal BMI result Body Mass Index 26.8 BMI Assessment/Plan discussion: High BMI High, discussed plan: lifestyle, weight reduction, dietary, physical activity and alcohol moderation Tobacco/Smoking Status: Tobacco use Status Tobacco use date assessed 01/24/25 04/24/25 13:48 Patient Tobacco Use Status Never used Tobacco 04/24/25 13:48 e-Cigarette/Vaping Use Never Used 04/24/25 13:48 PHQ-9: PHQ-9 Score PHQ-9: Total score 0 04/24/25 14:37 Depression Screening Interpretation: Negative Thrive Assessment: Date of Thrive Assessment Date Thrive assessed 11/02/24 04/24/25 13:48 Currently or been in a relationship where the following occur: No concerns reported Const Other: Appearance: Alert. Oriented X3. No acute distress. Head: Normal external exam. Normocephalic. Atraumatic. Eyes: Pupils are equal, round, and reactive to light. Extraocular movements intact. Conjunctiva and sclera normal. Eyelids normal. Ears: External auditory canal normal. Tympanic membranes normal. Neck: Normal inspection. Neck supple. Full range of motion. Cardiovascular: Normal heart rate and rhythm. Respiratory: No respiratory distress. Painless inspiration. Abdomen: Soft and nontender. No distention noted. No organomegaly noted. Back: Full range of motion noted. Skin: Skin warm and dry. Normal skin color. Normal skin turgor. No rashes/lesi ons/lacerations noted. Extremities: Extremities exhibit normal range of motion. Results AMB Hemoglobin A1c AMB Hemoglobin A1c 7.0 % Last Edit by MAYKEL Fernando on 04/24/25 14:36 Results Reviewed Results Reviewed: Laboratory Last Values Hgb A1c (Clinic) 7.0 % (4.0-6.0) H 04/24/25 14:35 - Labs: Platelet count 89,000 (low), BUN 35 (elevated), GFR 44 (reduced), A1c 7.0 (slightly improved), triglycerides 163 (elevated). Coding Level of Care Code Est Pt Level 4 (74397) Complex EM visit Add On G2211 Diagnoses Establishing care with new doctor, encounter for Z76. Thrombocytopenia D69.6 CKD (chronic kidney disease) N18.9 Type 2 diabetes mellitus with hemoglobin A1c goal of less than 7.0% E11.9 Allergic rhinitis J30.9 Preventative health care Z00.00 Overweight with body mass index (BMI) of 26 to 26.9 in adult E66.3; Z68.26 Additional Codes PACO-7 Assessment Billing - PACO-7 Assessment Tool: PACO-7 Assessment 60095 ([id number]) PHQ-9 - 53827 - PHQ-9 Billing: Yes ([id number]) Assessment & Plan Assessment & Plan (1) Establishing care with new doctor, encounter for: Code(s): Z76.89 - Persons encountering health services in other specified circumstances Category: Medical (2) Thrombocytopenia: Code(s): D69.6 - Thrombocytopenia, unspecified Category: Medical Plan: Referral to hematology for further evaluation of persistent thrombocytopenia is planned. Condition is chronic and stable continue to monitor. (3) CKD (chronic kidney disease): Code(s): N18.9 - Chronic kidney disease, unspecified Category: Medical Plan: Renal ultrasound ordered. Referral to nephrology is planned to assess kidney function and review current medications, particularly lisinopril. Condition is chronic and stable continue to monitor. (4) Type 2 diabetes mellitus with hemoglobin A1c goal of less than 7.0%: Code(s): E11.9 - Type 2 diabetes mellitus without complications Category: Medical Plan: The patient's diabetes management with Jardiance 25 mg, glipizide 10 mg b.i.d., Januvia 100 mg daily. will continue with current medications, and A1c will be monitored regularly. A1c level today 7.0. Condition is chronic and stable will continue to monitor. (5) Allergic rhinitis: Code(s): J30.9 - Allergic rhinitis, unspecified Category: Medical Plan: The patient will switch to Radha to manage symptoms of allergic rhinitis. (6) Preventative health care: Code(s): Z00.00 - Encounter for general adult medical examination without abnormal findi ngs Category: Medical Plan: Mammogram and bone density scan have been scheduled at [facility] for preven tative care. (7) Overweight with body mass index (BMI) of 26 to 26.9 in adult: Code(s): E66.3 - Overweight; Z68.26 - Body mass index [BMI] 26.0-26.9, adult Category: Medical Plan: Patient has improved diet and exercise regimen. Condition is chronic and stable continue to monitor. Plan Plan Patient was informed and verbally consented to the use of an ambient scribe for clinic note documentation during this visit. 1. Vitamin D Deficiency The patient will continue vitamin D supplementation, reducing the frequency to once a month as levels have normalized. 2. Thrombocytopenia Referral to hematology for further evaluation of persistent thrombocytopenia is planned. 3. Chronic Kidney Disease Referral to nephrology is planned to assess kidney function and review current medications, particularly lisinopril. 4. Type 2 Diabetes Mellitus The patient's diabetes management will continue with current medications, and A1c will be monitored regularly. 5. Allergic Rhinitis The patient will switch to Radha to manage symptoms of allergic rhinitis. 6. Preventative Care Mammogram and bone density scan have been scheduled at [facility] for preventative care. I discussed with the patient the importance of continuing vitamin D supplementation and adjusting the frequency to once a month. We reviewed the need for hematology and nephrology referrals to address thrombocytopenia and chronic kidney disease, respectively. I explained the plan to switch to Radha for allergic rhinitis management and confirmed the scheduling of a mammogram and bone density scan for preventative care. We also discussed the continuation of current diabetes management and the importance of regular A1c monitoring. Orders: Orders AMB Hemoglobin A1c Today E11.9 - Type 2 diabetes mellitus without complications XR DEXA axial skeleton Today M81.0 - Age-related osteoporosis without current pathological fracture MM screening mammo BI Today Z12.31 - Encounter for screening mammogram for malignant neoplasm of breast US renal BI Today N18.9 - Chronic kidney disease, unspecified Referrals Nephrology Referral N18.9 - Chronic kidney disease, unspecified Medications: New fexofenadine (Radha Allergy) 180 mg PO DAILY 90 tabs 3RF Discontinued loratadine-pseudoephedrine 5-120 mg ER (Loratadine-D) Discontinued Reason: Doctor's Order 1 tab PO Q12H 90 tabs 1RF Patient Instructions: - Continue vitamin D supplementation once a month. - Follow up with hematology and nephrology as scheduled. - Switch to Radha for allergy management. - Attend scheduled mammogram and bone density scan appointments. - Monitor blood sugar levels and maintain diabetes management plan.
[2025-04-24 13:43] VITALS: BP 120/50; PULSE 81; RESP 16; TEMP 36.3; O2SAT 96; BMI 26.8
--- OUTSIDE RECORDS SUMMARY | 2025-04-24 14:13 | XMS_ITS | Data Portability ---
Author Organization [facility] [id number] Address [address] [place] [address] Assessment No assessment recorded. Plan of Treatment [...] Address Organization Details Recorded Time Hypertensive disorder 32169912 Active OSCARUSHA ALTAMIRANO RA null, [place] - [facility] 2 10:06:43 Diabetes mellitus 45362392 Active OSCAR SHANTELLE-BROWN ANDERSON null, PA - [facility] 2 10:06:53 Hypercholestero lemia 94952413 Active OSCARUSHA ALTAMIRANO RA null, PA - [facility] 2 10:07:02 Problem Notes None recorded. Medical Equipment None Reported. Allergies Allergen ID Allergen Name Allergen Category Reaction Reaction Severity Criticality Documentation Date Start Date Code Code System Note Provider Name and Address Organization Details Recorded Time 70179 ciproflox acin medicatio n anaphylax is Not [...] Updated DateTime 2 172.72 cm 27.4 kg/m2 85824.6 3 g 98 % 98 % 0 70 /min 17 /min 97.7 [degF] 140/70 mm[Hg] OSCAR ALTAMIRANO RA [facility] 10:03:30 Social History Question Answer Notes LastModified by Lomaki Details LastModified Time Tobacco Smoking Status Never Smoker OSCAR cobos PA [facility] 09/19/2022 10:07:31 Have You Had Direct Contact, Or Contact During Intimacy, With Monkeypox Rash, Scabs, Or Body Fluids From A Person With Monkeypox? No Information not available 09/19/2022 Have You Recently Traveled Abroad? No Information not available 09/19/2022 Sex: Unknown Functional Status Question Answer Note LastModified by Lomaki Details LastModified Time Do you use any [...] SNOMED-CT Code Diagnosis ICD10 Code Diagnosis Note [id number] [address] [place] [address] 08/29/2018 14:09:51 08/29/2018 17:12:45 [id number] [address] [place] [address] 01/03/2022 12:45:19 01/03/2022 13:46:28 [id number] [address] [address] [facility] [address] 01/09/2022 09:23:10 01/09/2022 11:51:29 [id number] [address] [place] [address] 10/06/2017 10:27:06 10/06/2017 10:48:41 [id number] [address] [place] [address] 10/18/2019 16:27:02 10/18/2019 19:18:15 [id number] Tulio Garcia DO [address] [place] [address] 09/19/2022 08:27:53 09/19/2022 10:26:13 COVID-19 [id number] U07.1 COVID positiveRe commend isolation x 5 [...] wear a mask. For travel guidance, see [facility] s Travel webpage.Do not travel.Sta y home [...] e masking (see below).For travel guidance, see [facility] s Travel webpage. Health Concerns Section Related Observation LastModified by Organization Detai ls LastModified Time None Recorded Concern Status LastModified by Organization Details LastModified Time None Recorded Advance Directives Directive None Recorded Payers Insurance Date Sequence Insurance Name Policy Number Policy Curiel Covered Member ID Curiel Member ID Guarantor Name 09/19/2022 1 [employer] PLAN (HMO) [id number] Marly Bai [place] [id number] [employer] 09/19/2022 2 [place] Marly Bai [place] [id number] Marly [place] 09/19/2022 1 [place] (MEDICARE REPLACEMENT PPO) Marly Whit [id number] [employer]arly [employer] Notes Date Note Type Note Provider Name [...] Garcia, DO [address] [place], [address], [place] - [facility] 09/19/2022 10:23:22 OBGyn Episode No OBEpisode recorded.
== END 2025-04-24 15:09 | disposition home or self-care (01) ==
LOC: HO.HMCSH 13:38
PROVIDERS: PCP Physician Assistant Medical; Visit Provider Physician Assistant Medical
DX: Z76.89 Persons encountering health services in other specified circumstances (principal); D69.6 Thrombocytopenia, unspecified; N18.9 Chronic kidney disease, unspecified; E11.9 Type 2 diabetes mellitus without complications; J30.9 Allergic rhinitis, unspecified; Z00.00 Encounter for general adult medical examination without abnormal findings; E66.3 Overweight; Z68.26 Body mass index [BMI] 26.0-26.9, adult

== ENCOUNTER → 2025-04-24 13:38 | Outpatient (BNVA) | payer MEDICARE, SELFPAY | PROVIDERS: PCP Physician Assistant Medical; Visit Provider Physician Assistant Medical | DX: Z00.00 Encounter for general adult medical examination without abnormal findings (principal); E11.22 Type 2 diabetes mellitus with diabetic chronic kidney disease; N18.9 Chronic kidney disease, unspecified; J30.2 Other seasonal allergic rhinitis; D69.6 Thrombocytopenia, unspecified; J30.9 Allergic rhinitis, unspecified; E66.3 Overweight; E55.9 Vitamin D deficiency, unspecified; Z76.89 Persons encountering health services in other specified circumstances; Z68.26 Body mass index [BMI] 26.0-26.9, adult | CPT/HCPCS: 83036; 96127; 99212 ==

== ENCOUNTER 2025-05-06 15:01 | Outpatient (AMB) | payer MEDICARE, SELFPAY ==
--- NOTE | 2025-05-06 15:18 | AM.OFFVISNUR ---
Intake Visit Reasons: B12 injection Allergies ciprofloxacin Allergy (Unknown, Verified 04/24/25 14:16) Angioedema Coding
--- NOTE | 2025-05-06 15:42 | MHC.PC.OV ---
Intake Visit Reasons: B12 injection Allergies ciprofloxacin Allergy (Unknown, Verified 05/06/25 15:41) Angioedema Medication List - Last Reconciled 05/06/25 by Rosa Ying PA-C alcohol swabs (Alcohol Pads) 1 pad topical .weekly aspirin 81 mg PO DAILY atorvastatin 80 mg PO DAILY cholecalciferol (vitamin D3) 1,250 mcg PO QWEEK 3 months empagliflozin (Jardiance) 25 mg PO DAILY fexofenadine (Radha Allergy) 180 mg PO DAILY folic acid 1 mg PO DAILY glipizide 10 mg PO BID hydroxocobalamin 1,000 mcg IM QWEEK 1 month lisinopril 20 mg PO DAILY metformin 1,000 mg PO BID sitagliptin phosphate 100 mg PO DAILY syringe with needle (BD Luer-Dale Syringe) for vit b12 injections to be given weekly x 1 month then monthly Tobacco use date assessed: 01/24/25 Dental Screening Dental Screen Date: 01/24/25 HPI B12 injection HPI Details The patient is a 69-year-old female presenting for evaluation and management of thrombocytopenia and vitamin B12 deficiency. The patient has had a low platelet count since 2020, which was not previously addressed by her healthcare providers. The hematology department was consulted, and it was noted that the patient was not on vitamin B12 replacement therapy, which could be contributing to her thrombocytopenia. The patient's vitamin B12 level was found to be low, at approximately 200 pg/mL, which is considered low enough to potentially affect platelet count. The patient is currently on metformin, which may interfere with the absorption of vitamin B12 when taken orally. As a result, vitamin B12 injections have been recommended to ensure adequate absorption and address the deficiency. Additionally, the patient has been identified with chronic kidney disease, with a glomerular filtration rate (GFR) of 44 mL/min/1.73 m?, indicating reduced kidney function. The patient's blood urea nitrogen (BUN) level is 35 mg/dL, which may suggest dehydration, although creatinine levels are normal. [facility] Medical History (Updated 05/06/25 @ 15:45 by Rosa Ying PA-C) Vitamin B12 deficiency Abdominal cramps Overweight with body mass index (BMI) of 26 to 26.9 in adult Preventative health care Allergic rhinitis Type 2 diabetes mellitus with hemoglobin A1c goal of less than 7.0% Annual physical exam Establishing care with new doctor, encounter for Thrombocytopenia CKD (chronic kidney disease) Vitamin D deficiency High triglycerides Elevated ALT measurement Low platelet count Dehydration Overweight with body mass index (BMI) of 28 to 28.9 in adult Candidal stomatitis Cough Diabetes mellitus with coincident hypertension Diabetes mellitus Surgical History No pertinent past surgical history Family History Mother No problems noted. Father No problems noted. Social History Housing: House Alcohol intake: never Patient Tobacco Use Status: Never used Tobacco e-Cigarette/Vaping Use: Never Used Second Hand Smoke Exposure: No service: No Current occupational status: employed Cognitive needs: No Hearing needs: No Vision needs: Yes Questionnaire Thrive Questionnaire Date Thrive assessed: 11/02/24 PACO-7 AMB Questionnaire PACO-7 Date PACO - 7 assessed: 01/24/25 Source: Developed by Drs. Phu Buckley, Vanessa Garcia, Andres Barnhart and colleagues, with an educational britney from [employer]. Review of Systems Const All systems reviewed & are unremarkable except as noted in HPI and below Physical exam (Primary Care) Tobacco/Smoking Status: Tobacco use Status Tobacco use date assessed 01/24/25 04/24/25 13:48 Patient Tobacco Use Status Never used Tobacco 04/24/25 13:48 e-Cigarette/Vaping Use Never Used 04/24/25 13:48 Thrive Assessment: Date of Thrive Assessment Date Thrive assessed 11/02/24 04/24/25 13:48 Const Other: Appearance: Alert. Oriented X3. No acute distress. Head: Normal external exam. Normocephalic. Atraumatic. Eyes: Pupils are equal, round, and reactive to light. Extraocular movements intact. Conjunctiva and sclera normal. Eyelids normal. Throat: Pharynx normal. Uvula midline. Moist mucous membranes. Neck: Normal inspection. Neck supple. Full range of motion. Cardiovascular: Normal heart rate and rhythm. Respiratory: No respiratory distress. Painless inspiration. Back: Full range of motion noted. Skin: Skin warm and dry. Normal skin color. Normal skin turgor. No rashes/lesions/lacerations noted. Extremities: Extremities exhibit normal range of motion. Neuro: Oriented X 3. No motor deficit. No sensory deficit. Reflexes normal. Results Reviewed Results Reviewed: - Labs: Vitamin B12 level approximately 200 pg/mL, GFR 44 mL/min/1.73 m?, BUN 35 mg/dL, normal creatinine levels Coding Level of Care Code Est Pt Level 4 (03760) Complex EM visit Add On G2211 Diagnoses Thrombocytopenia D69.6 Vitamin B12 deficiency E53.8 CKD (chronic kidney disease) N18.9 Assessment & Plan Assessment & Plan (1) Thrombocytopenia: Code(s): D69.6 - Thrombocytopenia, unspecified Category: Medical Plan: The patient will begin vitamin B12 injections weekly for one month, followed by monthly injections, to address the deficiency and its potential impact on platelet count. Follow-up blood work will be conducted 6 to 8 weeks after starting the B12 replacement to assess platelet count and B12 levels. (2) Vitamin B12 deficiency: Code(s): E53.8 - Deficiency of other specified B group vitamins Category: Medical Plan: Vitamin B12 injections have been initiated due to the interference of metformin with oral B12 absorption. The patient will receive weekly injections for one month, transitioning to monthly thereafter. (3) CKD (chronic kidney disease): Code(s): N18.9 - Chronic kidney disease, unspecified Category: Medical Plan: The patient has been informed of her chronic kidney disease, with a GFR of 44 mL/min/1.73 m?. Further nephrology consultation may be considered based on follow-up lab results. Plan Plan Patient was informed and verbally consented to the use of an ambient scribe for clinic note documentation during this visit. 1. Thrombocytopenia The patient will begin vitamin B12 injections weekly for one month, followed by monthly injections, to address the deficiency and its potential impact on platelet count. Follow-up blood work will be conducted 6 to 8 weeks after starting the B12 replacement to assess platelet count and B12 levels. 2. Vitamin B12 Deficiency Vitamin B12 injections have been initiated due to the interference of metformin with oral B12 absorption. The patient will receive weekly injections for one month, transitioning to monthly thereafter. 3. Chronic Kidney Disease The patient has been informed of her chronic kidney disease, with a GFR of 44 mL/min/1.73 m?. Further nephrology consultation may be considered based on follow-up lab results. 4. Celiac Disease Screening The patient will undergo screening for celiac disease due to potential malabsorption issues. Blood work will be arranged to check for celiac disease markers. During the visit, I discussed with the patient the importance of addressing her vitamin B12 deficiency through injections due to the interference of metformin with oral absorption. We also reviewed the plan to monitor her platelet count and B12 levels after initiating treatment. I explained the potential impact of her chronic kidney disease and the need for possible nephrology consultation based on future lab results. Additionally, we discussed screening for celiac disease to rule out malabsorption issues. Orders: Orders Complete Blood Count Auto Diff Today Z00.00 - Encounter for general adult medical examination without abnormal findings Transglutaminase Ab IgG 1 Day R14.0 - Abdominal distension (gaseous) Transglutaminase IgA 1 Day R14.0 - Abdominal distension (gaseous) Vitamin B12 and Folate Today Z00.00 - Encounter for general adult medical examination without abnormal findings Comprehensive Met. Panel Today Z00.00 - Encounter for general adult medical examination without abnormal findings Patient Instructions: - Begin vitamin B12 injections weekly for one month, then switch to monthly injections. - Schedule follow-up blood work in 6 to 8 weeks to check platelet count and B12 levels. - Undergo blood work for celiac disease screening as soon as possible.
== END 2025-05-06 15:38 | disposition home or self-care (01) ==
LOC: HO.HMCSH 15:01
PROVIDERS: PCP Physician Assistant Medical; Visit Provider Physician Assistant Medical
DX: D69.6 Thrombocytopenia, unspecified (principal); E53.8 Deficiency of other specified B group vitamins; N18.9 Chronic kidney disease, unspecified

== ENCOUNTER → 2025-05-06 15:01 | Outpatient (BNVA) | payer MEDICARE, SELFPAY | PROVIDERS: PCP Physician Assistant Medical; Visit Provider Physician Assistant Medical | DX: E53.8 Deficiency of other specified B group vitamins (principal); D69.6 Thrombocytopenia, unspecified; N18.9 Chronic kidney disease, unspecified | CPT/HCPCS: 99212 ==

== ENCOUNTER 2025-05-22 08:36 | Outpatient (AMB) | payer MEDICARE, SELFPAY ==
--- NOTE | 2025-05-22 08:39 | HO.NEPHOV ---
Vital Signs 05/22/25 08:40 Height 5 ft 8 in Weight 178 lb BMI 27.1 BP 122/60 Blood Pressure Location Lt brachial Position Sitting Pulse 75 Pulse Source Pulse Oximeter Pulse Oximetry (%) 98 Oxygen Delivery Method Room Air Intake Visit Reasons: INP: CKD/ Conf [employer] Instructor Required: No Accompanied by: Self / Same As Patient Allergies ciprofloxacin Allergy (Unknown, Verified 05/22/25 08:41) Angioedema Medication List - Last Reconciled 05/22/25 by Al Sandoval MD alcohol swabs (Alcohol Pads) 1 pad topical .weekly aspirin 81 mg PO DAILY atorvastatin 80 mg PO DAILY empagliflozin (Jardiance) 25 mg PO DAILY fexofenadine (Radha Allergy) 180 mg PO DAILY folic acid 1 mg PO DAILY glipizide 10 mg PO BID hydroxocobalamin 1,000 mcg IM QWEEK 1 month lisinopril 20 mg PO DAILY metformin 1,000 mg PO BID sitagliptin phosphate 100 mg PO DAILY syringe with needle (BD Luer-Dale Syringe) for vit b12 injections to be given weekly x 1 month then monthly HPI Comments Details: Pleasant 69-year-old female referred for evaluation of CKD. Her creatinine level is 1.2 mg/dL, She has a 27-year history of diabetes mellitus, currently well-controlled with an A1c of 7.1%. She is on Jardiance for three years. The patient has essential hypertension, managed with lisinopril 20 mg, and reports stable blood pressure readings. She has hyperlipidemia, controlled with medication. The patient has an allergy to ciprofloxacin, causing respiratory distress previously. No history of surgeries, swelling, nausea, or urinary issues reported. Family history includes a brother with benign kidney cysts, no kidney failure or dialysis. MEDICAL HISTORY: - Diabetes Mellitus for 27 years, well-controlled - Essential Hypertension, long-standing, well-managed - Hyperlipidemia, controlled with medication - Allergy to Ciprofloxacin, causing respiratory distress SURGICAL HISTORY: - No history of surgical procedures MEDICATIONS: - Jardiance, for diabetes management, taken for 3 years - Lisinopril 20 mg, for hypertension management - Aspirin, for cardiovascular protection - Vitamin B12 shots, for supplementation - Folic acid, for supplementation SOCIAL HISTORY: - Employment: Owns a small business, works a few days a week - Diet: Not conscious of salt intake, but avoids due to family history of heart problems - Alcohol: Does not consume alcohol, drinks Diet Coke - Hydration: Attempts to drink more water, uses a large water bottle FAMILY HISTORY: - Brother with benign kidney cysts, no cancer [facility] Medical History (Updated 05/06/25 @ 15:45 by Rosa Ying PA-C) Vitamin B12 deficiency Abdominal cramps Overweight with body mass index (BMI) of 26 to 26.9 in adult Preventative health care Allergic rhinitis Type 2 diabetes mellitus with hemoglobin A1c goal of less than 7.0% Annual physical exam Establishing care with new doctor, encounter for Thrombocytopenia CKD (chronic kidney disease) Vitamin D deficiency High triglycerides Elevated ALT measurement Low platelet count Dehydration Overweight with body mass index (BMI) of 28 to 28.9 in adult Candidal stomatitis Cough Diabetes mellitus with coincident hypertension Diabetes mellitus Surgical History No pertinent past surgical history Family History Mother No problems noted. Father No problems noted. Social History Housing: House Alcohol intake: never Patient Tobacco Use Status: Never used Tobacco e-Cigarette/Vaping Use: Never Used Second Hand Smoke Exposure: No service: No Current occupational status: employed Cognitive needs: No Hearing needs: No Vision needs: Yes Physical Exam Vital Signs: Last Vital Signs Pulse 75 05/22/25 08:40 BP 122/60 05/22/25 08:40 Pulse Ox 98 05/22/25 08:40 Oxygen Delivery Method Room Air 05/22/25 08:40 BMI result Body Mass Index 27.1 Comfortable Neck supple no JVD. Lungs entry equal no rales. Heart S1-S2 heard no gallop or rub. Abdomen soft nontender. Neuro alert awake oriented. No asterixis. Extremities no edema. Results Reviewed Nephrology Results: Hgb, (12.0-16.0) 12.2 g/dl 04/10/25 WBC, (4.8-10.8) 4.9 X10*3/uL 04/10/25 Plt Count, (160-400) 89 X10*3/uL L 04/10/25 Sodium, (135-145) 142 mmol/L 04/10/25 Potassium, (3.3-5.1) 4.8 mmol/L 04/10/25 Chloride, (96-108) 112 mmol/L H 04/10/25 Carbon Dioxide, (22-29) 22 mmol/L 04/10/25 BUN, (9-16) 35 mg/dL H 04/10/25 Creatinine, (0.5-1.4) 1.22 mg/dL 04/10/25 Calcium, (8.4-10.2) 9.0 mg/dL 04/10/25 Urine Creatinine 96.51 mg/dL 04/10/25 Assessment & Plan Assessment & Plan (1) Hypertension: Code(s): I10 - Essential (primary) hypertension Category: Medical (2) CKD (chronic kidney disease): Code(s): N18.9 - Chronic kidney disease, unspecified Category: Medical Plan 69-year-old woman with history of longstanding diabetes mellitus for more than 20 years along with hypertension has mild CKD. The renal function will be stable for the last 5 years with a creatinine of 1.2 mg/dL. No proteinuria. Urine sediments were bland. Plan 24 hour urine collection for accurate measurement of renal function Encouraged to stay on low-sodium diet Increase p.o. fluid intake. Renal ultrasonogram. Maintain blood pressure less than 130/80 Continue to avoid nephrotoxic agents including NSAIDs. Further workup will be based on the outcome of the base investigations. No other changes were made today. Current office in next few weeks Orders: Orders Basic Metabolic Panel Today I10 - Essential (primary) hypertension, N18.9 - Chronic kidney disease, unspecified Potassium 24 Hr Urine Group Today I10 - Essential (primary) hypertension, N18.9 - Chronic kidney disease, unspecified Creatinine, 24 Hr Group Today I10 - Essential (primary) hypertension, N18.9 - Chronic kidney disease, unspecified Coding Level of Care Code New Pt Level 4 (32152) Diagnoses Hypertension I10 CKD (chronic kidney disease) N18.9
[2025-05-22 08:40] VITALS: BP 122/60; PULSE 75; O2SAT 98; BMI 27.1
== END 2025-05-22 09:06 | disposition home or self-care (01) ==
LOC: HO.HKAS 08:36
PROVIDERS: PCP Physician Assistant Medical; Referring Provider Physician Assistant Medical; Visit Provider Internal Medicine Hypertension Specialist
DX: I12.9 Hypertensive chronic kidney disease with stage 1 through stage 4 chronic kidney disease, or unspecified chronic kidney disease (principal); N18.9 Chronic kidney disease, unspecified
CPT/HCPCS: 99204

== ENCOUNTER → 2025-05-22 08:36 | Outpatient (BNVA) | payer MEDICARE, SELFPAY | PROVIDERS: PCP Physician Assistant Medical; Referring Provider Physician Assistant Medical; Visit Provider Internal Medicine Hypertension Specialist | DX: I10 Essential (primary) hypertension (principal); N18.9 Chronic kidney disease, unspecified; E78.5 Hyperlipidemia, unspecified; Z79.84 Long term (current) use of oral hypoglycemic drugs; T36.8X5A Adverse effect of other systemic antibiotics, initial encounter | CPT/HCPCS: 99202 ==

== ENCOUNTER 2025-06-10 14:53 | Outpatient (REF) | payer MEDICARE, SELFPAY ==
--- NOTE | ~2025-06-10 | US_ITS ---
EXAMINATION: US KIDNEY BILATERAL HISTORY: N18.9 - Chronic kidney disease, unspecified TECHNIQUE: Real-time grayscale ultrasound imaging of the kidneys was performed and images were reviewed. COMPARISON: There are no prior studies available for comparison. FINDINGS: Right kidney: The right kidney measures 11.6 x 5.3 x 5.4 cm. Renal parenchymal echotexture and thickness are normal. There are cysts in the interpolar region measuring 3.3 x 2.4 x 3.2 cm and 1.0 x 0.6 x 0.8 cm. There is no hydronephrosis or renal calculi. Left Kidney: The left kidney measures 11.9 x 5.1 x 3.0 cm. Renal parenchymal echotexture and thickness are normal. There are no masses. There is no hydronephrosis or renal calculi. US/US renal BI IMPRESSION: Right renal cysts as described. Otherwise unremarkable renal ultrasound. Electronically signed by: Phu Buchanan MD 06/10/2025 03:36 PM EDT
== END 2025-06-10 14:54 | disposition home or self-care (01) ==
LOC: HO.US 14:53
PROVIDERS: PCP Physician Assistant Medical; Visit Provider Physician Assistant Medical
DX: N18.9 Chronic kidney disease, unspecified (principal)
CPT/HCPCS: 76775

== ENCOUNTER → 2025-06-10 14:57 | Outpatient (BNV) | payer MEDICARE, SELFPAY | PROVIDERS: PCP Physician Assistant Medical; Visit Provider Radiology Diagnostic Radiology | DX: N28.1 Cyst of kidney, acquired (principal) | CPT/HCPCS: 76775 ==

== ENCOUNTER 2025-06-12 13:40 | Outpatient (REF) | payer MEDICARE, SELFPAY ==
[2025-06-12 14:44] LABS: Creatinine, mg/dL 60.39; Potassium, 24U 38.0 mmol/L
[2025-06-12 15:30] LABS: Potassium, 24 Hr Urine 68.4 mmol/Day (25-125); Total Volume 24 Hour Urine 1800 mL
== END 2025-06-12 13:41 | disposition home or self-care (01) ==
LOC: HO.LNP 13:40
PROVIDERS: Visit Provider Internal Medicine Hypertension Specialist
DX: I12.9 Hypertensive chronic kidney disease with stage 1 through stage 4 chronic kidney disease, or unspecified chronic kidney disease (principal); N18.9 Chronic kidney disease, unspecified
CPT/HCPCS: 84133

== ENCOUNTER 2025-06-14 07:26 | Outpatient (REF) | payer MEDICARE, SELFPAY ==
[2025-06-14 08:01] LABS: MANUAL DIFF FLAG NO
[2025-06-14 08:17] LABS: Hematocrit 35.0 % (37.0-47.0); Hemoglobin 11.5 g/dl (12.0-16.0); Imm Gran Abs Auto 0.02 X10*3/uL (0.00-0.03); Imm Gran Pct Auto 0.5 % (0.0-0.4); Lymphocytes Absolute Auto 1.1 X10*3/uL (1.2-4.9); Mean Corpuscular HGB Conc 32.9 g/dl (31.0-35.0); Mean Corpuscular Hemoglobin 29.3 pg (27.0-33.0); Mean Corpuscular Volume 89.1 fL (80.0-98.0); NRBC Abs Auto 0.000 X10*3/uL (0.0-0.012); NRBC Pct Auto 0.0 /100WBC (0.0-0.2); Red Blood Count 3.93 X10*6/uL (4.20-5.50); White Blood Count 4.0 X10*3/uL (4.8-10.8)
[2025-06-14 08:19] LABS: Platelet Count 89 X10*3/uL (160-400)
[2025-06-14 08:58] LABS: Alanine Aminotransferase 65 U/L (0-31); Albumin Level 4.0 g/dL (3.5-5.0); Alkaline Phosphatase 89 U/L (39-117); Anion Gap 14 (12-20); Aspartate Amino Transferase 47 U/L (5-31); Blood Urea Nitrogen 44 mg/dL (9-16); Calcium 9.3 mg/dL (8.4-10.2); Carbon Dioxide 21 mmol/L (22-29); Chloride 115 mmol/L (96-108); Estimated Glomerular Filt Rate 41; Potassium 4.7 mmol/L (3.3-5.1); Sodium 145 mmol/L (135-145); Total Protein 6.4 g/dL (6.5-8.0)
[2025-06-14 09:34] LABS: Folate 13.4 ng/mL (> or = 4.0); Vitamin B12 814 pg/mL (200-900)
[2025-06-20 11:04] LABS: Transglutaminase Ab IgG <1.0 U/mL
== END 2025-06-14 07:27 | disposition home or self-care (01) ==
LOC: HO.LAB 07:26
PROVIDERS: PCP Physician Assistant Medical; Visit Provider Physician Assistant Medical
DX: Z00.00 Encounter for general adult medical examination without abnormal findings (principal); R14.0 Abdominal distension (gaseous)
CPT/HCPCS: 36415; 80053; 82607; 82746; 85025; 86364

== ENCOUNTER 2025-06-26 08:57 | Outpatient (AMB) | payer MEDICARE, SELFPAY ==
[2025-06-26 08:55] VITALS: BP 118/60; PULSE 78; O2SAT 98; BMI 27.2
--- NOTE | 2025-06-26 08:55 | HO.NEPHOV_ITS ---
Vital Signs 06/26/25 08:55 Height 5 ft 8 in Weight 179 lb BMI 27.2 BP 118/60 Blood Pressure Location Lt brachial Position Sitting Pulse 78 Pulse Source Pulse Oximeter Pulse Oximetry (%) 98 Oxygen Delivery Method Room Air Intake Visit Reasons: 4-5wk follow up-Conf Prison Classification Counselor Required: No Accompanied by: Self / Same As Patient Allergies ciprofloxacin Allergy (Unknown, Verified 06/26/25 08:59) Angioedema Medication List - Last Reconciled 06/26/25 by Al Sandoval MD alcohol swabs (Alcohol Pads) 1 pad topical .weekly aspirin 81 mg PO DAILY atorvastatin 80 mg PO DAILY empagliflozin (Jardiance) 25 mg PO DAILY fexofenadine (Radha Allergy) 180 mg PO DAILY folic acid 1 mg PO DAILY glipizide 10 mg PO BID hydroxocobalamin 1,000 mcg IM QMONTH lisinopril 20 mg PO DAILY metformin 1,000 mg PO BID 90 days sitagliptin phosphate 100 mg PO DAILY syringe with needle (BD Luer-Dale Syringe) for vit b12 injections to be given weekly x 1 month then monthly HPI Comments Details: Pleasant 69-year-old female referred for evaluation of CKD. Her creatinine level is 1.2 mg/dL, She has a 27-year history of diabetes mellitus, currently well-controlled with an A1c of 7.1%. She is on Jardiance for three years. The patient has essential hypertension, managed with lisinopril 20 mg, and reports stable blood pressure readings. She has hyperlipidemia, controlled with medication. The patient has an allergy to ciprofloxacin, causing respiratory distress previously. No history of surgeries, swelling, nausea, or urinary issues reported. Family history includes a brother with benign kidney cysts, no kidney failure or dialysis. 06/26/25 - The patient is a 69-year-old female with mild CKD She underwent 24 urine collection. No specific complaints today. [facility] Medical History (Updated 06/21/25 @ 16:09 by Bridgette Santos NP) Vitamin B12 deficiency Abdominal cramps Overweight with body mass index (BMI) of 26 to 26.9 in adult Preventative health care Allergic rhinitis Type 2 diabetes mellitus with hemoglobin A1c goal of less than 7.0% Annual physical exam Establishing care with new doctor, encounter for Thrombocytopenia CKD (chronic kidney disease) Vitamin D deficiency High triglycerides Elevated ALT measurement Low platelet count Dehydration Overweight with body mass index (BMI) of 28 to 28.9 in adult Candidal stomatitis Cough Diabetes mellitus with coincident hypertension Diabetes mellitus Surgical History No pertinent past surgical history Family History Mother No problems noted. Father Diabetes Brother HTN (hypertension) Social History Household Members: None Housing: House Alcohol intake: never Patient Tobacco Use Status: Never used Tobacco e-Cigarette/Vaping Use: Never Used Second Hand Smoke Exposure: No service: No Current occupational status: employed Cognitive needs: No Hearing needs: No Vision needs: Yes Physical Exam Vital Signs: Last Vital Signs Pulse 78 06/26/25 08:55 BP 118/60 06/26/25 08:55 Pulse Ox 98 06/26/25 08:55 Oxygen Delivery Method Room Air 06/26/25 08:55 BMI result Body Mass Index 27.2 Comfortable Neck supple no JVD. Lungs entry equal no rales. Heart S1-S2 heard no gallop or rub. Abdomen soft nontender. Neuro alert awake oriented. No asterixis. Extremities no edema. Results Reviewed Results Reviewed: Twenty-four urine collection showed a volume of 1800 cc with a creatinine clearance of 60 mL/minute Nephrology Results: Hgb, (12.0-16.0) 10.9 g/dl L 06/21/25 WBC, (4.8-10.8) 4.3 X10*3/uL L 06/21/25 Plt Count, (160-400) 77 X10*3/uL L 06/21/25 Sodium, (135-145) 143 mmol/L 06/21/25 Potassium, (3.3-5.1) 4.4 mmol/L 06/21/25 Chloride, (96-108) 116 mmol/L H 06/21/25 Carbon Dioxide, (22-29) 21 mmol/L L 06/21/25 BUN, (9-16) 43 mg/dL H 06/21/25 Creatinine, (0.5-1.4) 1.30 mg/dL 06/21/25 Calcium, (8.4-10.2) 8.7 mg/dL Δ 06/21/25 Renal US 06/10/25 Assessment & Plan Assessment & Plan (1) Hypertension: Code(s): I10 - Essential (primary) hypertension Category: Medical (2) CKD (chronic kidney disease): Code(s): N18.9 - Chronic kidney disease, unspecified Category: Medical Plan 69-year-old woman with history of longstanding diabetes mellitus for more than 20 years along with hypertension has mild CKD. The renal function will be stable for the last 5 years with a creatinine of 1.2 mg/dL. No proteinuria. Urine sediments were bland. 24 hour urine collection reveals creatinine clearance of 57 mL/minute. This is probably at baseline. Encouraged to stay on low-sodium diet Increase p.o. fluid intake. Maintain blood pressure less than 130/80 Continue to avoid nephrotoxic agents including NSAIDs. Maintain A1c less than 7%. Renal cyst seen on Renal ultrasonogram. No solid masses were noted. No hydronephrosis or renal stones Orders: Orders Basic Metabolic Panel 4 Months Al Sandoval MD N18.9 - Chronic kidney disease, unspecified Creatinine Urine 4 Months Al Sandoval MD N18.9 - Chronic kidney disease, unspecified Total Protein Urine Random 4 Months Al Sandoval MD N18.9 - Chronic kidney disease, unspecified UA and rflx microscopic 4 Months Al Sandoval MD N18.9 - Chronic kidney disease, unspecified Medications: Changed From hydroxocobalamin 1,000 mcg IM QWEEK 1 month 5 mL 0RF D69.6 - Thrombocytopenia, unspecified To hydroxocobalamin 1,000 mcg IM QMONTH D69.6 - Thrombocytopenia, unspecified Rosa Ying PA-C Coding Level of Care Code Est Pt Level 4 (73622) Diagnoses Hypertension I10 CKD (chronic kidney disease) N18.9
== END 2025-06-26 09:14 | disposition home or self-care (01) ==
LOC: HO.HKAS 08:57
PROVIDERS: PCP Physician Assistant Medical; Visit Provider Internal Medicine Hypertension Specialist
DX: I12.9 Hypertensive chronic kidney disease with stage 1 through stage 4 chronic kidney disease, or unspecified chronic kidney disease (principal); N18.9 Chronic kidney disease, unspecified
CPT/HCPCS: 99214

== ENCOUNTER → 2025-06-26 08:57 | Outpatient (BNVA) | payer MEDICARE, SELFPAY | PROVIDERS: PCP Physician Assistant Medical; Visit Provider Internal Medicine Hypertension Specialist | DX: I12.9 Hypertensive chronic kidney disease with stage 1 through stage 4 chronic kidney disease, or unspecified chronic kidney disease (principal); N18.9 Chronic kidney disease, unspecified | CPT/HCPCS: 99212 ==

== ENCOUNTER 2025-08-21 08:32 | Outpatient (REF) | payer MEDICARE, SELFPAY ==
--- NOTE | ~2025-08-21 | US_ITS ---
CLINICAL HISTORY: pancytopenia, elevated LFTs US abdomen complete Comparison: 06/10/2025 Findings: Gallbladder normal without stones or wall thickening. Common duct measures 2.5 mm. No sonographic Argueta sign. Fatty infiltration of the liver without focal abnormality. Right lobe measures 14.6 cm in length. Main portal vein patent with normal direction of flow. Pancreas is unremarkable. Aorta and IVC patent and normal in caliber. The right kidney is normal, 11.4 cm in length. No focal abnormality or hydronephrosis. 3.6 and 1.0 cm midpole cysts. The left kidney is normal, 12.1 cm in length. No focal abnormality or hydronephrosis. The spleen is normal, 13.5 cm in length. No focal abnormality. Impression: Fatty infiltration of the liver Otherwise unremarkable This document has been electronically signed by: Alessandro Doe MD on 08/21/2025 19:46:27
--- OUTSIDE RECORDS SUMMARY | 2025-08-21 16:17 | XMS_ITS | Data Portability ---
Author Organization [facility] [id number] Address [address] [place] [address] Assessment No assessment recorded. Plan of Treatment [...] Address Organization Details Recorded Time Hypertensive disorder 88711051 Active OSCARUSHA ALTAMIRANO RA null, PA - [facility] 2 10:06:43 Diabetes mellitus 99121549 Active OSCAR SHANTELLE-BROWN ANDERSON null, PA - [facility] 2 10:06:53 Hypercholestero lemia 47144929 Active OSCARUSHA ALTAMIRANO RA null, PA - [facility] 2 10:07:02 Problem Notes None recorded. Medical Equipment None Reported. Allergies Allergen ID Allergen Name Allergen Category Reaction Reaction Severity Criticality Documentation Date Start Date Code Code System Note Provider Name and Address Organization Details Recorded Time 74980 ciproflox acin medicatio n anaphylax is Not [...] Updated DateTime 2 172.72 cm 27.4 kg/m2 10657.6 3 g 98 % 98 % 0 70 /min 17 /min 97.7 [degF] 140/70 mm[Hg] OSCAR ALTAMIRANO RA [facility] 10:03:30 Social History Question Answer Notes LastModified by Hipt[employer] Details LastModified Time Tobacco Smoking Status Never Smoker OSCAR cobos PA [place] [facility] 09/19/2022 10:07:31 Have You Had Direct Contact, Or Contact During Intimacy, With Monkeypox Rash, Scabs, Or Body Fluids From A Person With Monkeypox? No Information not available 09/19/2022 Have You Recently Traveled Abroad? No Information not available 09/19/2022 Sex: Unknown Functional Status Question Answer Note LastModified by Hipt[employer] Details LastModified Time Do you use any [...] Diagnosis SNOMED-CT Code Diagnosis ICD10 Code Diagnosis IMO Codes Diagnosis Note [id number] [address] [facility] [place] [address] 08/29/2018 14:09:51 08/29/2018 17:12:45 [id number] [address] [facility] [place] [address] 01/03/2022 12:45:19 01/03/2022 13:46:28 [id number] [address] [facility] [address] [facility] [address] 01/09/2022 09:23:10 01/09/2022 11:51:29 [id number] [address] [place] [address] 10/06/2017 10:27:06 10/06/2017 10:48:41 [id number] [address] [place] [address] 10/18/2019 16:27:02 10/18/2019 19:18:15 [id number] Tulio Garcia, [address] [place] [address] 09/19/2022 08:27:53 09/19/2022 10:26:13 COVID-19 [id number] U07.1 COVID positiveRe commend isolation x 5 daysPlenty of fluidsTyle nol for pain/fever Humidifier Nasal saline spraymucin ex and/or coricidinP lease call your PCP to discuss PaxlovidDi sctenaed concerning red flags with patient and reasons [...] wear a mask. For travel guidance, see CDC s Travel webpage.Do not travel.Sta y home [...] e masking (see below).For travel guidance, see CDC s Travel webpage. Health Concerns Section Related Observation LastModified by Organization Detai ls LastModified Time None Recorded Concern Status LastModified by Organization Details LastModified Time None Recorded Advance Directives Directive None Recorded Payers Insurance Date Sequence Insurance Name Policy Number Policy Curiel Covered Member ID Curiel Member ID Guarantor Name 09/19/2022 1 [employer] PLAN (HMO) [id number] Marly Bai Whit [id number] [employer] 09/19/2022 2 [place] Marly Bai [place] [id number] Marly Whit 09/19/2022 1 [place]MED[place]ARE [place]ACEMENT PPO) Marly Whit [id number] [employer] Notes Date Note Type Note Provider Name and Address Organization Details Recorded Time 09/19/2022 text/html CongestionReport ed by Patientpt has nasal congestion x 1 1/2 weeks. tested POSITIVE for covid 09/13/2022. No feverNo chillsNo coughNo difficulty breathing or respiratory distressNo CPNo ear painNo sore throatNo Abdominal painNo nauseaNo vomitingNp diarrheaNo myalgiaNo fatigueNo rashNo HANo dizzinessNo recent travelNo known sick contacts Tulio Garcia, DO [address] [place], [address], [place] - [facility] 09/19/2022 10:23:22 OBGyn Episode No OBEpisode recorded.
== END 2025-08-21 08:33 | disposition home or self-care (01) ==
LOC: HO.US 08:32
PROVIDERS: PCP Physician Assistant Medical; Visit Provider Nurse Practitioner Family
DX: D61.818 Other pancytopenia (principal); R79.89 Other specified abnormal findings of blood chemistry
CPT/HCPCS: 76700

== ENCOUNTER → 2025-08-21 08:34 | Outpatient (BNV) | payer MEDICARE, SELFPAY | PROVIDERS: PCP Physician Assistant Medical; Visit Provider Radiology Diagnostic Radiology | DX: K76.0 Fatty (change of) liver, not elsewhere classified (principal) | CPT/HCPCS: 76700 ==

== ENCOUNTER → 2025-09-02 11:20 | Outpatient (BNV) | payer MEDICARE, SELFPAY | PROVIDERS: PCP Physician Assistant Medical; Referring Provider Physician Assistant Medical; Visit Provider Nurse Practitioner Family | DX: D61.818 Other pancytopenia (principal); R74.01 Elevation of levels of liver transaminase levels | CPT/HCPCS: 99204; 99213 ==